=== PATIENT | female | born 1930 | race Asian ===

== ENCOUNTER 2019-11-06 13:57 | Inpatient (IN) | payer OTHER ==
[~2019-11-06] VITALS: Ht 147.3 cm; Wt 60.8 kg
--- NOTE | 2019-11-06 14:18 | NUR ---
PT WAS TAKEN TO XR
[2019-11-06 14:30] VITALS: BP 155/76
--- NOTE | 2019-11-06 14:30 | NUR ---
PT TAKEN TO BED VIA WHEELCHAIR WITH DAUGHTER
--- NOTE | 2019-11-06 14:30 | NUR ---
89/F BIB DAUGHTER FROM HOME, C/O POOR APPETITE X2 WEEKS. REPORTS DIFFUSE ABD PAIN. DENIES FEVER. DENIES COUGH. PT AWAKE AND ALERT, WITH FACIAL GRIMACING, MOANING, PT ABLE TO AMBULATE WITH ASSIST BUT WHEELCHAIR-ASSISTED, RR EVEN AND UNLABORED, LUNG SOUNDS CLEAR BL. S1S2 PRESENT, NSR ON MONITOR. BS ACTIVE X4, ABD SOFT FLAT TENDER DIFFUSELY. HX CHF, HYPONATREMIA, HTN, GERD, GASTRIC ULCER RX LASIX, OMEPRAZOLE, MISOPROSTOL, SODIUM CHLORIDE 1GM, VALSARTAN, ATIVAN
[2019-11-06 15:13] LABS: BASOPHILS % (AUTO) 0.8 % (0.0-2.0); EOSINOPHILS # (AUTO) 0.1 K/uL (0-0.4); EOSINOPHILS % (AUTO) 2.8 % (0.0-4.0); HEMATOCRIT 40.2 % (36-48); HEMOGLOBIN 13.7 g/dL (12.0-16.0); LYMPHOCYTES # (AUTO) 1.2 K/uL (2.5-16.5); LYMPHOCYTES % (AUTO) 25.7 % (20.5-51.1); MEAN CORPUSCULAR HEMOGLOBIN 34 pg (27-31); MEAN CORPUSCULAR HGB CONC 34 g/dL (33-37); MEAN CORPUSCULAR VOLUME 100.7 fL (80-94); MONOCYTES # (AUTO) 0.6 K/uL (0.8-1.0); MONOCYTES % (AUTO) 12.6 % (1.7-9.3); NEUTROPHILS # (AUTO) 2.8 K/uL (1.8-7.7); NEUTROPHILS % (AUTO) 58.1 % (42.2-75.2); PLATELET COUNT (AUTO) 244 K/uL (140-450); RED BLOOD CELL COUNT(AUTO) 3.99 MIL/uL (4.20-5.40); RED CELL DISTRIBUTION WIDTH 15.2 % (11.6-13.7); WHITE BLOOD COUNT (AUTO) 4.8 K/uL (4.8-10.8)
[2019-11-06 15:36] LABS: ALBUMIN 3.7 g/dL (3.4-5.0); ANION GAP 8.9 (8-16); ASPARTATE AMINOTRANSFERASE 42 U/L (15-37); CARBON DIOXIDE 26.8 mmol/L (21-32); CHLORIDE 98 mmol/L (98-107); CREATININE 0.7 mg/dL (0.6-1.3); GLUCOSE 153 mg/dL (74-106); POTASSIUM 3.7 mmol/L (3.5-5.1); SODIUM SERUM 130 mmol/L (136-145); TOTAL BILIRUBIN 0.7 mg/dL (0.0-1.0); UREA NITROGEN, BLOOD 4 mg/dL (7-18)
[2019-11-06] MEDS ORDERED: NACL 0.9% 1,000 ML IV ONE (15:45)
[2019-11-06] MEDS ORDERED: MORPHINE SULFATE 4 MG/ML SYR IVP ONE (15:45)
--- NOTE | 2019-11-06 16:03 | NUR ---
STRAIGHT CATH PERFORMED AT BEDSIDE TO OBTAIN URINE
--- NOTE | 2019-11-06 16:09 | NUR ---
CT WITH CONTRAST CONSENT SIGNED AT BEDSIDE
--- NOTE | 2019-11-06 16:15 | NUR ---
PT TAKEN TO CT VIA FABIOLA
[2019-11-06 16:24] LABS: APPEARANCE,URINE CLEAR (CLEAR); BILIRUBIN,URINE NEGATIVE (NEGATIVE); BLOOD, URINE NEGATIVE (NEGATIVE); COLOR,URINE YELLOW (YELLOW); LEUKOCYTE ESTERASE ,URINE NEGATIVE (NEGATIVE); NITRITE, URINE NEGATIVE (NEGATIVE); UGLUCOSE NEGATIVE (NEGATIVE)
--- NOTE | 2019-11-06 16:50 | NUR ---
CHANGED PTS DIAPER. VSS. ALL NEEDS MET AT THIS TIME
[2019-11-06] MEDS ORDERED: DOCUSATE SODIUM 100 MG GELCAP PO PRN (17:25)
[2019-11-06] MEDS ORDERED: ONDANSETRON 4 MG/2 ML VIAL IM/IVP PRN (17:25)
[2019-11-06] MEDS ORDERED: OMEP40EC14 PO (17:57)
[2019-11-06] MEDS ORDERED: CYT100 PO (17:57)
[2019-11-06] MEDS ORDERED: VALS160T2 PO (17:57)
[2019-11-06] MEDS ORDERED: FURO-572 PO (17:57)
[2019-11-06] MEDS ORDERED: ATI.5 PO (17:57)
[2019-11-06] MEDS ORDERED: SODI100076 PO (17:57)
[2019-11-06] MEDS ORDERED: OMEP20TC12 PO (18:05)
--- NOTE | 2019-11-06 18:30 | NUR ---
MRSA SWAB DONE TO PT AND SAMPLE WAS SENT TO LAB.
[2019-11-06 18:35] VITALS: BP 155/71
--- NOTE | 2019-11-06 18:35 | NUR ---
RECEIVED PT FROM ER NURSE, RADHA, PT IS AWAKE AND ALERT AND AMBULATED WITH ASSIST TO THE BED, IV LINE ON THE RT AC G. 20 ON SALINE LOCK, PT IS SERBIAN AND ACCOMPANIED BY DAUGHTER, C/O SOB AND WAS PLACED ON O2 O2 Glory CASTRO WAS INFORMED, NO SIGN OF DISTRESS NOTED AND WILL CONTINUE TO BE MONITORED.
--- NOTE | 2019-11-06 18:39 | NUR ---
Patient will be admitted to care of HOLM. Admited to MED SURG TELE. Will go to room 128A. Belongings list completed. Report to BRIANNE DAVIS.
--- NOTE | 2019-11-06 18:40 | NUR ---
ALL IV FLUIDS DISCONTINUED AT TIME OF TRANSFER.
[2019-11-06 18:50] LABS: BARBITURATE, URINE NEG. ng/ml (NEG <=200); BENZODIAZEPINE, URINE NEG. ng/mL (NEG <=200); CANNABINOID, URINE NEG. ng/mL (NEG <=50); COCAINE, URINE NEG. ng/mL (NEG <=300); OPIATE, URINE NEG. ng/mL (NEG <=2000); PHENCYCLIDINE SCREEN,URINE NEG. ng/mL (NEG <=25)
--- NOTE | 2019-11-06 18:50 | NUR ---
ULTRASOUND OF THE BILATERAL CAROTID ARTERY WAS BEING DONE TO PT NOW.
[2019-11-06 19:02] LABS: AMYLASE 39 U/L (25-115); MAGNESIUM 1.6 mg/dL (1.8-2.4); PHOSPHORUS 3.3 mg/dL (2.5-4.9); THYROID STIMULATING HORMONE 2.15 uIU/mL (0.34-3.74)
[2019-11-06 19:03] LABS: PROTHROMBIN TIME 10.1 secs (10.8-13.4)
--- NOTE | 2019-11-06 19:25 | NUR ---
ENDORSED PT TO SPORTS MANAGER NURSEMEL FOR CONTINUITY OF CARE.
--- NOTE | 2019-11-06 19:25 | NUR ---
RECIEVED PT . AAOX4 NID , IV SITE INTACT AND PATENT , NPO NID - O2 SAT WNL, DAUGHTER AT BEDSIDE . DENIES PAIN AT THIS TIME . SOFT ABD. , INCONTINENT. PLAN OF CARE DISCUSSED AND VERBALIZE UNDERSTANDING . ON SAFETY / FALL PRECAUTION PROTOCOL - CALL LIGFHT WITHIN REACH TOO WEAK TO WALK ACCORDING TO DAUGHTER.WILL CONT. TO MONITOR
[2019-11-06 19:30] VITALS: BP 130/70
[2019-11-06] MEDS ORDERED: POTASSIUM CHLORIDE 20% 40 MEQ/15 ML UDC PO SCH (19:30)
[2019-11-06] MEDS ORDERED: MAG SULF 2000 MG/WATER PREMIX 50 ML IV SCH (19:30)
[2019-11-06] MEDS: NACL 0.9% 1,000 ML IV SCH (20:13)
--- NOTE | 2019-11-06 22:00 | NUR ---
MADE ROUNDS . NO S/SXS OF ACUTE DISTRESS NOTED AT THIS TIME.
[2019-11-06] MEDS: MISOPROSTOL 100 MCG TAB PO SCH (23:03)
[2019-11-06] MEDS: LORazepam 0.5 MG TAB PO SCH (23:03)
[2019-11-06] MEDS: MIRTAZAPINE 15 MG TAB PO SCH (23:04)
[2019-11-07] VITALS: BP 128/70
--- NOTE | 2019-11-07 | NUR ---
MADE ROUNDS O2 SAT WNL - ON SALES TEAM LEADER . NO COMPLAIN MADE AT THIS TIME . WILL CONT. TO MONITOR.
--- NOTE | 2019-11-07 02:00 | NUR ---
MADE ROUNDS . RESP . UNLABORED AND EVEN - OS SAT WNL .
[2019-11-07 04:00] VITALS: BP 130/72
--- NOTE | 2019-11-07 04:00 | NUR ---
MADE ROUNDS MOLD REPAIR TECHNICIAN COMPLAIN MADE - CALL LIGHT WITHIN REACH.
[2019-11-07] MEDS ORDERED: PANTOPRAZOLE 40 MG TABEC PO ONE ×2 (05:16→05:17)
--- NOTE | 2019-11-07 06:00 | NUR ---
MADE ROUNDS . NO S/SXS OF ACUTE DISTRESS NOTED AT THIS TIME . WILL CONT. TO MONITOR. MAINTAIN NPO .
[2019-11-07 06:05] LABS: BASOPHILS % (AUTO) 0.8 % (0.0-2.0); EOSINOPHILS # (AUTO) 0.2 K/uL (0-0.4); EOSINOPHILS % (AUTO) 5.7 % (0.0-4.0); HEMATOCRIT 39.2 % (36-48); HEMOGLOBIN 13.3 g/dL (12.0-16.0); LYMPHOCYTES # (AUTO) 1.3 K/uL (2.5-16.5); LYMPHOCYTES % (AUTO) 36.3 % (20.5-51.1); MEAN CORPUSCULAR HEMOGLOBIN 35 pg (27-31); MEAN CORPUSCULAR HGB CONC 34 g/dL (33-37); MEAN CORPUSCULAR VOLUME 101.8 fL (80-94); MONOCYTES # (AUTO) 0.4 K/uL (0.8-1.0); MONOCYTES % (AUTO) 12.5 % (1.7-9.3); NEUTROPHILS # (AUTO) 1.6 K/uL (1.8-7.7); NEUTROPHILS % (AUTO) 44.7 % (42.2-75.2); PLATELET COUNT (AUTO) 215 K/uL (140-450); RED BLOOD CELL COUNT(AUTO) 3.85 MIL/uL (4.20-5.40); RED CELL DISTRIBUTION WIDTH 14.6 % (11.6-13.7); WHITE BLOOD COUNT (AUTO) 3.6 K/uL (4.8-10.8)
[2019-11-07] MEDS: PANTOPRAZOLE 40 MG TABEC PO SCH (06:07)
[2019-11-07 07:07] LABS: ANION GAP 8.7 (8-16); CARBON DIOXIDE 30.5 mmol/L (21-32); CHLORIDE 102 mmol/L (98-107); CREATININE 0.6 mg/dL (0.6-1.3); GLUCOSE 108 mg/dL (74-106); POTASSIUM 4.2 mmol/L (3.5-5.1); SODIUM SERUM 137 mmol/L (136-145); UREA NITROGEN, BLOOD 4 mg/dL (7-18)
[2019-11-07 07:14] LABS: MAGNESIUM 2.3 mg/dL (1.8-2.4); PHOSPHORUS 3.8 mg/dL (2.5-4.9)
[2019-11-07 07:20] LABS: CHOL/HDL RATIO 3.7 (1-4.5)
--- NOTE | 2019-11-07 07:35 | NUR ---
ENDORSED TO AM SHIFT FOR CONT. OF CARE . PT IS WITH STABLE CONDITION .
--- NOTE | 2019-11-07 07:40 | NUR ---
RECEIVED PT FROM PULP MAKER NURSE, PT IS AWAKE AND LYING ON THE BED WITH SIDE RAILS UP ANC ALL LIGHT WITHIN REACH, IV LINE ON THE RT AC G. 20 WITH IVF OF NS INFUSING AT 60ML/HR, NO SIGN OF DISTRESS NOTED AND WILL MONITOR PT.
[2019-11-07 08:00] VITALS: BP 160/66
--- NOTE | 2019-11-07 08:32 | NUR ---
PATIENT HAS BEEN SCREENED AND CATEGORIZED HIGH NUTRITION RISK. PATIENT WILL BE SEEN WITHIN 1-2 DAYS OF ADMISSION. 11/07/19-11/08/[address]
[2019-11-07] MEDS ORDERED: NON-FORMULARY ITEM (Omeprazole 40 MG) PO SCH (09:00)
[2019-11-07] MEDS: FUROSEMIDE 20 MG TAB PO SCH (09:22)
[2019-11-07] MEDS: LORazepam 0.5 MG TAB PO SCH ×2 (09:22→20:28)
[2019-11-07] MEDS: SODIUM CHLORIDE 1 GM TAB PO SCH (09:23)
[2019-11-07] MEDS: MISOPROSTOL 100 MCG TAB PO SCH ×4 (09:24→20:26)
[2019-11-07] MEDS: VALSARTAN 80 MG TAB PO SCH (09:30)
[2019-11-07 12:00] VITALS: BP 155/76
--- NOTE | 2019-11-07 12:05 | NUR ---
DR. CAVANAUGH WAS INFORMED OF THE PT'S BP RESULT OF 171/69, PULSE IS 63, MD SAID THAT HE WILL JUST PLACE AN ORDER.
[2019-11-07] MEDS: NACL 0.9% 1,000 ML IV SCH (13:05)
--- NOTE | 2019-11-07 13:05 | NUR ---
PT WAS GIVEN THE SCHEDULED MEDICATION, ANEW BAG OF IVF WAS STARTED TO PT.
--- NOTE | 2019-11-07 13:12 | NUR ---
PT' BP WAS CHECKED NOW AND RESULT IS 155/76, PULSE IS 71, O2 SATURATION IS 94%, DR. CAVANAUGH WAS INFORMED OF THE V/S.
--- NOTE | 2019-11-07 13:13 | NUR ---
SWALLOW EVALUIATION IS BEING DONE TO PT NOW BY MIRLANDE.
--- NOTE | 2019-11-07 13:49 | NUR ---
*S.T. BEDSIDE SWALLOW EVAL COMPLETED* See report. Pt presents w/ adequate oropharyngeal swallow function for baseline diet textures given. NO overt s/s aspiration observed across all textures. Pt is able to self-feed w/ min assist. Recommend: 1) Advance to mechanical soft ground diet, thin liquids okay. Straws okay. 2) P.O. meds okay whole, one at a time. 3) Nsg to assist w/ tray set up and positioning pt to promote self-feeding. No further swallow tx indicated at this time as pt appears to be functionig at her reported baseline level. DC to nsg care. D/w pt and dtr at bedside. Endorsed to RYAN Peres. Time [id number]
[2019-11-07 16:00] VITALS: BP 126/60
--- NOTE | 2019-11-07 16:25 | NUR ---
11/07/19 RD INITIAL ASSESSMENT COMPLETED PLEASE REFER TO NUTRITION ASSESSMENT UNDER CARE ACTIVITY FOR ESTIMATED NUTRITIONAL NEEDS. 1. CONTINUE CARDIAC, MECH. SOFT-GROUND, THIN LIQUIDS DIET TOLERATED 2. RD RECOMMEND ENSURE BID 3. RD TO FOLLOW-UP 2-3 DAYS, HIGH RISK MAMADOU PUTNAM, RD
--- NOTE | 2019-11-07 17:03 | NUR ---
Corn Husker Note: Per patient's daughter Charley Rascon, patient lives at home with her older sister Valarie and they would like patient to be placed at [facility] (senior strategy analyst). She told me they have already visited [facility]. I faxed referral to [facility], Melita from [facility] is aware of referral and will contact our nurses' station and let nurse know if they can accept or not.
[2019-11-07] MEDS: MORPHINE SULFATE 2 MG/ML SYR IVP PRN (17:15)
--- NOTE | 2019-11-07 17:15 | NUR ---
PT WAS GIVEN PAIN MEDICATION VIA IV PUSH FOR C/O PAIN RATE OF 9/10. WILL RE-ASSESS PAIN AND MONKITOR PT.
--- NOTE | 2019-11-07 19:10 | NUR ---
ENDORSED PT TO MANAGER PATIENT NURSE, FOR CONTINUITY OF CARE, PT IS STABLE AT THIS TIME WITH DAUGHTER ON THE BEDSIDE.
--- NOTE | 2019-11-07 19:11 | NUR ---
RECEIVED REPORT FROM DAY SHIFT NURSE. PT RESTING IN BED. AAOX3. PT'S DAUGHTER AT BEDSIDE. NO C/O PAIN AT THIS TIME. ON ROOM AIR. SKIN INTACT. IV TO RIGHT AC #20G, NS AT 60 ML/HR INFUSING WELL. SAFETY PRECAUTION IN PLACE. CALL LIGHT WITHIN REACH.
[2019-11-07 20:00] VITALS: BP 154/76
[2019-11-07] MEDS: KETOROLAC 15 MG/ML VIAL IVP PRN (20:25)
[2019-11-07] MEDS: MIRTAZAPINE 15 MG TAB PO SCH (20:26)
--- NOTE | 2019-11-07 21:30 | NUR ---
PT LYING IN BED. NO C/O PAIN OR SOB. ALL NEEDS ATTENDED AT THIS TIME. CALL LIGHT WITHIN REACH.
[2019-11-08] VITALS: BP 125/53
--- NOTE | 2019-11-08 | NUR ---
PT SLEEPING BUT EASILY AROUSABLE. NO S/S OF RESP DISTRESS. NO S/S OF PAIN OR DISCOMFORT.
[2019-11-08] MEDS: NACL 0.9% 1,000 ML IV SCH ×2 (02:45→22:06)
--- NOTE | 2019-11-08 03:00 | NUR ---
PT SLEEPING. RESP EVEN AND UNLABORED. NO S/S OF PAIN OR DISCOMFORT. SAFETY PRECAUTION IN PLACE.
[2019-11-08 04:00] VITALS: BP 15/76
--- NOTE | 2019-11-08 05:30 | NUR ---
PT WAS CLEANSED AND REPOSITIONED. ALL NEEDS ATTENDED AT THIS TIME. CALL LIGHT WITHIN REACH.
[2019-11-08 06:06] LABS: FOLIC ACID 13.6 ng/mL (>3.0)
[2019-11-08] MEDS: PANTOPRAZOLE 40 MG TABEC PO SCH (06:13)
--- NOTE | 2019-11-08 07:25 | NUR ---
ENDORSED PT TO DAY SHIFT NURSE. PT IN STABLE CONDITION.
--- NOTE | 2019-11-08 07:26 | NUR ---
RECEIVED BEDSIDE SHIFT REPORT FROM SERVICE PLUMBER NURSE FOR CONTINUATION OF CARE. PATIENT SPEAKS ONLY SLOVENIAN, UNABLE TO COMMUNICATE EFFECTIVELY WITHOUT THE USE OF LANGUAGE INTERPRETATION AT THIS TIME. NS RUNNING AT 10 ML/HR. MECHANICAL SOFT DIET IN PLACE, INCONTINENT. PATIENT BED IS IN LOW POSITION, CALL LIGHT ON AND WITHIN REACH. WILL CONTINUE TO MONITOR FOR TREATMENT.
--- NOTE | 2019-11-08 07:27 | NUR ---
RECEIVED BEDSIDE SHIFT REPORT FROM AM SHIFT NURSE, ADONAY FOR CONTINUATION OF CARE. PATIENT SPEAKS ONLY ALBANIAN. PT UNDERSTANDS LITTLE POLISH. NS RUNNING AT 60 ML/HR AT R FOREARM. PATIENT BED IS IN LOW POSITION, CALL LIGHT ON AND WITHIN REACH. WILL CONTINUE TO MONITOR FOR TREATMENT Addendum: 11/09/19 at 0752 by Tiffanie Cervantes RN DELETE NOTE
[2019-11-08 08:00] VITALS: BP 151/80
[2019-11-08 08:00] LABS: BASOPHILS % (AUTO) 0.6 % (0.0-2.0); EOSINOPHILS # (AUTO) 0.2 K/uL (0-0.4); EOSINOPHILS % (AUTO) 5.9 % (0.0-4.0); HEMATOCRIT 38.9 % (36-48); HEMOGLOBIN 13.2 g/dL (12.0-16.0); LYMPHOCYTES # (AUTO) 0.8 K/uL (2.5-16.5); LYMPHOCYTES % (AUTO) 23.7 % (20.5-51.1); MEAN CORPUSCULAR HEMOGLOBIN 35 pg (27-31); MEAN CORPUSCULAR HGB CONC 34 g/dL (33-37); MEAN CORPUSCULAR VOLUME 101.3 fL (80-94); MONOCYTES # (AUTO) 0.4 K/uL (0.8-1.0); MONOCYTES % (AUTO) 12.3 % (1.7-9.3); NEUTROPHILS % (AUTO) 57.5 % (42.2-75.2); PLATELET COUNT (AUTO) 208 K/uL (140-450); RED BLOOD CELL COUNT(AUTO) 3.84 MIL/uL (4.20-5.40); RED CELL DISTRIBUTION WIDTH 14.6 % (11.6-13.7); WHITE BLOOD COUNT (AUTO) 3.5 K/uL (4.8-10.8)
[2019-11-08] MEDS: FUROSEMIDE 20 MG TAB PO SCH (08:07)
[2019-11-08] MEDS: LORazepam 0.5 MG TAB PO SCH ×2 (08:07→20:25)
[2019-11-08] MEDS: MISOPROSTOL 100 MCG TAB PO SCH ×4 (08:08→22:05)
[2019-11-08] MEDS: VALSARTAN 80 MG TAB PO SCH (08:08)
[2019-11-08] MEDS: SODIUM CHLORIDE 1 GM TAB PO SCH (08:08)
--- NOTE | 2019-11-08 09:30 | NUR ---
LAB REPORT POSITIVE FOR MRSA NARES, DR. POLO NOTIFIED FOR MRSA NARES PROTOCOL INITIATION. PATIENT IS RESTING IN BED, MEDICATIONS ADMINISTERED. CALL LIGHT ON AND WITHIN REACH. PATIENT CONTINUES ON MECHANICAL SOFT DIET. WILL CONTINUE TO MONITOR.
[2019-11-08 11:57] LABS: ANION GAP 11.8 (8-16); CARBON DIOXIDE 29.1 mmol/L (21-32); CHLORIDE 101 mmol/L (98-107); CREATININE 0.6 mg/dL (0.6-1.3); GLUCOSE 106 mg/dL (74-106); POTASSIUM 3.9 mmol/L (3.5-5.1); SODIUM SERUM 138 mmol/L (136-145); UREA NITROGEN, BLOOD 6 mg/dL (7-18)
[2019-11-08 12:00] VITALS: BP 121/76
--- NOTE | 2019-11-08 12:00 | NUR ---
MEDICATIONS ADMINISTERED AND TOLERATED WELL, PATIENT VERBALIZES 'ATIVAN' WHEN IN DISTRESS, CALLED RESIDENT FOR AN EXTRA ORDER, 1X DOSE OF ATIVAN 0.5 MG IVP ORDERED. PATIENT IS POSITIVE FOR MRSA NARES PER LAB. MRSA NARES PROTOCOL INITIATED. BACTROBAN ADMINISTERED. CHG BATH GIVEN. PATIENT IS RESTING IN BED, BED IN LOW POSITION, CALL LIGHT ON AND WITHIN REACH. WILL CONTINUE TO MONITOR.
[2019-11-08 12:04] LABS: MAGNESIUM 1.7 mg/dL (1.8-2.4)
[2019-11-08] MEDS ORDERED: LORazepam 2 MG/ML VIAL IVP SCH (12:45)
[2019-11-08] MEDS ORDERED: MAGNESIUM OXIDE 400 MG TAB PO SCH (12:55)
[2019-11-08] MEDS: CHLORHEXADINE GLUC 2% CLOTH TP SCH (13:06)
[2019-11-08] MEDS: MUPIROCIN CA NASAL 2% 1GM TUBE NS SCH (13:19)
--- NOTE | 2019-11-08 14:33 | NUR ---
DAUGHTER/PRIMARY SUPERVISOR PHOSPHORIC ACID CALLED AND WAS INFORMED OF MRSA STATUS. UPDATE GIVEN TO DAUGHTER REGARDING PATIENT CARE. PATIENT IS RESTING IN BED, PER DAUGHTER THE PATIENT HAS A MILD ULCER AND IS SENSITIVE TO FOOD, AND WHENEVER SHE EATS FOOD HER STOMACH BECOMES UPSET AND IS COUPLED WITH ANXIETY. DAUGHTER WAS EDUCATED ON THE DOSAGES AND USE OF ATIVAN. VERBALIZED UNDERSTANDING. BED IN LOW POSITION, CALL LIGHT ON AND WITHIN REACH. WILL CONTINUE TO MONITOR.
[2019-11-08 16:00] VITALS: BP 132/59
--- NOTE | 2019-11-08 17:00 | NUR ---
MEDICATION ADMINISTERED FOR BLOOD PRESSURE REGULATION. PATIENT SLEEPING IN BED, EYES CLOSED, OBSERVED CHEST RISE AND FALL. BED IN LOW POSITION CALL LIGHT ON AND WITHIN REACH, NS RUNNING AT 60 ML/HR. WILL CONTINUE TO MONITOR.
[2019-11-08] MEDS ORDERED: MUPI2CRE22 NS (17:32)
[2019-11-08] MEDS ORDERED: MIRT15TA4 PO (17:32)
[2019-11-08] MEDS ORDERED: CHLO118S2 TP (17:32)
[2019-11-08] MEDS ORDERED: DOCU-299 PO (17:33)
--- NOTE | 2019-11-08 19:15 | NUR ---
BEDSIDE SHIFT REPORT GIVEN TO SUPERVISOR FILTRATION NURSE FOR CONTINUATION OF CARE.
--- NOTE | 2019-11-08 19:16 | NUR ---
RECEIVED BEDSIDE SHIFT REPORT FROM AM SHIFT NURSEADONAY FOR CONTINUATION OF CARE. PATIENT SPEAKS ONLY TAMAZIGHT. PT UNDERSTANDS LITTLE TELUGU. NS RUNNING AT 60 ML/HR AT R FOREARM. PATIENT BED IS IN LOW POSITION, CALL LIGHT ON AND WITHIN REACH. WILL CONTINUE TO MONITOR FOR TREATMENT
[2019-11-08 20:00] VITALS: BP 126/69
[2019-11-08] MEDS: MORPHINE SULFATE 2 MG/ML SYR IVP PRN (20:24)
--- NOTE | 2019-11-08 20:24 | NUR ---
PT SAYING SHE HAS PAIN IN HER ABDOMEN, PT FACIAL GRIMACING AND CRYING. ADMINISTERED MORPHINE . WILL REASSESS
[2019-11-08] MEDS: MIRTAZAPINE 15 MG TAB PO SCH (20:26)
--- NOTE | 2019-11-08 21:20 | NUR ---
INFORMED DAUGHTER THAT PT IS NOT EATING WELL; DR. FLORES, GIVEN ENSURE TOTAL OF 600 ML PT TOLERATED WELL. CONSUMED IT
[2019-11-09] VITALS: BP 130/69
--- NOTE | 2019-11-09 00:45 | NUR ---
CHECKED ON PATIENT SLEEPING, NO COMPLAINTS AT THIS TIME.
--- NOTE | 2019-11-09 02:55 | NUR ---
PT STILL SLEEPING, BUT CLEANED AND TURNED PT TO SIDE, WILL CONTINUE TO MONITOR
[2019-11-09] MEDS: NACL 0.9% 1,000 ML IV SCH (03:53)
[2019-11-09 04:00] VITALS: BP 150/73
--- NOTE | 2019-11-09 04:55 | NUR ---
PT COMFORTABLE, CLEANED AGAIN, HAD URINE, NO COMPLAINTS. PT COMFORTABLE. WILL CONTINUE TO GIVE JUICE AND AND SNACKS
[2019-11-09] MEDS: PANTOPRAZOLE 40 MG TABEC PO SCH (06:46)
--- NOTE | 2019-11-09 07:09 | NUR ---
PT STILL SLEEPING BUT EASILY AWAKNEDD, PT IN STABLE CONDITION. NO COMPLAINTS AT THIS TIME. ENDORSED TO NEXT SHIFT.
--- NOTE | 2019-11-09 07:10 | NUR ---
REPORT RECEIVED FROM AIRCRAFT ARMORER NURSE FOR CONTINUATION OF CARE. PATIENT IS HAVING A BLOOD DRAW FROM LAB AT THIS TIME. PATIENT IS AAOX3. BED IS IN LOW POSITION, CALL LIGHT ON AND WITHIN REACH. PATIENT DENIES PAIN AT THIS TIME. PER REPORT PATIENT DID NOT HAVE A BM THROUGH OUT THE AIRCRAFT ARMORER, BUT VOIDED X3. IVF NS RUNNING AT 60 ML/HR. WILL CONTINUE TO MONITOR.
[2019-11-09 08:00] VITALS: BP 149/71
[2019-11-09 08:19] LABS: BASOPHILS % (AUTO) 0.5 % (0.0-2.0); EOSINOPHILS # (AUTO) 0.2 K/uL (0-0.4); EOSINOPHILS % (AUTO) 4.7 % (0.0-4.0); HEMATOCRIT 39.6 % (36-48); HEMOGLOBIN 13.3 g/dL (12.0-16.0); LYMPHOCYTES % (AUTO) 23.5 % (20.5-51.1); MEAN CORPUSCULAR HEMOGLOBIN 34 pg (27-31); MEAN CORPUSCULAR HGB CONC 34 g/dL (33-37); MEAN CORPUSCULAR VOLUME 102.1 fL (80-94); MONOCYTES # (AUTO) 0.5 K/uL (0.8-1.0); MONOCYTES % (AUTO) 10.8 % (1.7-9.3); NEUTROPHILS # (AUTO) 2.7 K/uL (1.8-7.7); NEUTROPHILS % (AUTO) 60.5 % (42.2-75.2); PLATELET COUNT (AUTO) 204 K/uL (140-450); RED BLOOD CELL COUNT(AUTO) 3.88 MIL/uL (4.20-5.40); RED CELL DISTRIBUTION WIDTH 14.7 % (11.6-13.7); WHITE BLOOD COUNT (AUTO) 4.4 K/uL (4.8-10.8)
[2019-11-09 08:42] LABS: ANION GAP 13.1 (8-16); CHLORIDE 101 mmol/L (98-107); CREATININE 0.7 mg/dL (0.6-1.3); GLUCOSE 173 mg/dL (74-106); POTASSIUM 3.1 mmol/L (3.5-5.1); SODIUM SERUM 138 mmol/L (136-145); UREA NITROGEN, BLOOD 8 mg/dL (7-18)
[2019-11-09] MEDS: FUROSEMIDE 20 MG TAB PO SCH (09:18)
[2019-11-09] MEDS: VALSARTAN 80 MG TAB PO SCH (09:19)
[2019-11-09] MEDS: SODIUM CHLORIDE 1 GM TAB PO SCH (09:19)
[2019-11-09] MEDS: LORazepam 0.5 MG TAB PO SCH ×2 (09:19→20:11)
[2019-11-09] MEDS: MISOPROSTOL 100 MCG TAB PO SCH ×4 (09:19→21:06)
[2019-11-09 09:27] LABS: MAGNESIUM 1.6 mg/dL (1.8-2.4); PHOSPHORUS 3.6 mg/dL (2.5-4.9)
--- NOTE | 2019-11-09 10:00 | NUR ---
PATIENT IS RESTING IN BED, VITAL SIGNS ARE STABLE, PATIENT FINISHED 1 FULL ENSURE SUPPLEMENT. DISCHARGE ORDER PER MD. MEDICATIONS TOLERATED. BED IS IN LOW POSITION, CALL LIGHT ON AND WITHIN REACH. WILL CONTINUE TO MONITOR.
--- NOTE | 2019-11-09 10:15 | NUR ---
Discharge Planning: DANIELA faxed clinical packet to [facility] [phone]. DANIELA contacted Esperanza from [facility] [phone] to confirm packet was received. DANIELA attempted to arrange for patient to return to [facility], but Esperanza stated that there were are no beds available at this time. Esperanza stated that Jg would contact Cement Finishing Supervisor 11/10/2019. DANIELA informed Charge Nurse Adriano. DANIELA/CM will follow as needed.
[2019-11-09 12:00] VITALS: BP 148/62
--- NOTE | 2019-11-09 12:30 | NUR ---
PATIENT IS RESTING IN BED, CALL LIGHT ON AND WITHIN REACH, PATIENT DENIES PAIN AT THIS TIME, MAG 1.6 (LOW) AND POTASSIUM 3.1 (LOW) REPORTED TO DR. POLO. PATIENT IS STABLE, AAOX4. VITAL SIGNS NORMAL. WILL CONTINUE TO MONITOR.
[2019-11-09] MEDS: MUPIROCIN CA NASAL 2% 1GM TUBE NS SCH (13:42)
[2019-11-09] MEDS: CHLORHEXADINE GLUC 2% CLOTH TP SCH (13:42)
--- NOTE | 2019-11-09 15:00 | NUR ---
PATIENT IS RESTING IN BED, PATIENT HAD 1 BOWEL MOVEMENT, LINENS CHANGED, BOWEL IS MUSHY AND WATERY. CALL LIGHT ON AND WITHIN REACH. PATIENT DENIES PAIN AT THIS TIME. WILL CONTINUE TO MONITOR.
[2019-11-09 16:00] VITALS: BP 137/64
[2019-11-09] MEDS ORDERED: POTASSIUM CHLORIDE 10 MEQ TABER PO SCH (16:50)
[2019-11-09] MEDS ORDERED: POTASSIUM CHLORIDE 40 MEQ, LIDOCAINE MPF 1% 25 MG in NACL 0.9% 250 ML IV SCH (16:50)
--- NOTE | 2019-11-09 17:30 | NUR ---
POTASSIUM CHLORIDE INJECTION 40 MEQ IV ORDERED PER MD ORDER. PATIENT IS SLEEPING, SHE HAD 1 LARGE BOWEL MOVEMENT. PENDING PLACEMENT POST-DISCHARGE. SW WORKING ON PLACEMENT. BED IN LOW POSITION, CALL LIGHT ON AND WITHIN REACH. WILL CONTINUE TO MONITOR.
[2019-11-09] MEDS ORDERED: KCL 20 MEQ/WATER INJ PREMIX 200 ML IV ONE (18:07)
--- NOTE | 2019-11-09 19:23 | NUR ---
RECEIVED BEDSIDE SHIFT REPORT FROM AM SHIFT NURSEADONAY FOR CONTINUATION OF CARE. PATIENT SPEAKS ONLY ARMENIAN. PT UNDERSTANDS LITTLE TAMAZIGHT. NS RUNNING AT 60 ML/HR AT R FOREARM W/ POTASSIUM 20 MEQ'S IN ANOTHER LINE (MIXED). PATIENT BED IS IN LOW POSITION, CALL LIGHT ON AND WITHIN REACH. WILL CONTINUE TO MONITOR FOR TREATMENT
--- NOTE | 2019-11-09 19:24 | NUR ---
PER ENDORSEMENT OF ADONAY DAVIS; JUST INFUSE THE 20 MEQ'S AND NOT THE 40 MEQ'S. ADONAY TALKED TO AT THIS TIME, INFUSING THE 20 MEQ'S ON THE R AC G 20.
--- NOTE | 2019-11-09 19:25 | NUR ---
PER DR. HUYNH 20 MEQ'S OF POTASSIUM CHLORIDE INJECTION IS FINE VERSUS ORIGINAL ORDER FROM DR. POLO. REPORT GIVEN TO WEB MARKETING INTERN NURSE FOR CONTINUATION OF CARE.
[2019-11-09 20:00] VITALS: BP 138/63
[2019-11-09] MEDS: MIRTAZAPINE 15 MG TAB PO SCH (20:12)
[2019-11-09] MEDS: MORPHINE SULFATE 2 MG/ML SYR IVP PRN (20:12)
--- NOTE | 2019-11-09 21:00 | NUR ---
PT;S IS COMPLAINING OF PAIN IN HER R AC; CHANGED THE SITE TO THE LEFT AC G 22,TOLERATING WELL.
--- NOTE | 2019-11-09 22:28 | NUR ---
INFORMED DR. HUYNH THAT PT IS STILL GETTING THE K 20 MEQ'S. MG LEVEL IS 1. 6. DR. FLORES
[2019-11-10] VITALS: BP 132/63
--- NOTE | 2019-11-10 02:16 | NUR ---
PT MAGNESIUM, CHECKED ON SITE, R AC G 22, 2 GRAMS STARTED, PT TOLERATING WELL
[2019-11-10] MEDS ORDERED: MAG SULF 2000 MG/WATER PREMIX 50 ML IV SCH (03:00)
[2019-11-10 04:00] VITALS: BP 136/51
[2019-11-10] MEDS: PANTOPRAZOLE 40 MG TABEC PO SCH (05:51)
--- NOTE | 2019-11-10 06:43 | NUR ---
PT SLEEPING EASILY AROUSABLE. NO COMPLAINTS AT THIS TIME. PT STABLE CONDITION AT THIS TIME. WILL ENDORSE TO NEXT SHIFT.
[2019-11-10 06:53] LABS: BASOPHILS % (AUTO) 0.5 % (0.0-2.0); EOSINOPHILS # (AUTO) 0.2 K/uL (0-0.4); EOSINOPHILS % (AUTO) 3.6 % (0.0-4.0); HEMATOCRIT 39.5 % (36-48); HEMOGLOBIN 13.6 g/dL (12.0-16.0); LYMPHOCYTES # (AUTO) 1.6 K/uL (2.5-16.5); LYMPHOCYTES % (AUTO) 29.6 % (20.5-51.1); MEAN CORPUSCULAR HEMOGLOBIN 35 pg (27-31); MEAN CORPUSCULAR HGB CONC 34 g/dL (33-37); MEAN CORPUSCULAR VOLUME 101.4 fL (80-94); MONOCYTES # (AUTO) 0.6 K/uL (0.8-1.0); MONOCYTES % (AUTO) 11.2 % (1.7-9.3); NEUTROPHILS # (AUTO) 2.9 K/uL (1.8-7.7); NEUTROPHILS % (AUTO) 55.1 % (42.2-75.2); PLATELET COUNT (AUTO) 214 K/uL (140-450); RED CELL DISTRIBUTION WIDTH 14.6 % (11.6-13.7); WHITE BLOOD COUNT (AUTO) 5.2 K/uL (4.8-10.8)
--- NOTE | 2019-11-10 07:10 | NUR ---
RECEIVED PT FROM TRANSPORT TRUCK DRIVER NURSEDIEGO, PT IS AWAKE AND LYING ON THE BED WITH SIDE RAILS UP AND CALL LIGHT WITHIN REACH, PT IS ON CONTACT ISOLATION FOR POSITIVE MRSA OF NARES, PROTOCOL INITIATED, PERIPHERAL LINE ON THE RT AC G. 18 WITH NS INFUSING AT 60ML/HR, INTACT, INDONESIAN SPEAKING, ON ROOM AIR, DENIES PAIN, NO SIGN OF DISTRESS NOTED AND WILL MONITOR PT.
[2019-11-10 07:14] LABS: ANION GAP 11.9 (8-16); CARBON DIOXIDE 28.9 mmol/L (21-32); CHLORIDE 101 mmol/L (98-107); CREATININE 0.6 mg/dL (0.6-1.3); GLUCOSE 142 mg/dL (74-106); POTASSIUM 3.8 mmol/L (3.5-5.1); SODIUM SERUM 138 mmol/L (136-145); UREA NITROGEN, BLOOD 8 mg/dL (7-18)
[2019-11-10 07:25] LABS: MAGNESIUM 2.1 mg/dL (1.8-2.4); PHOSPHORUS 3.1 mg/dL (2.5-4.9)
[2019-11-10 08:00] VITALS: BP 131/70
[2019-11-10] MEDS: SODIUM CHLORIDE 1 GM TAB PO SCH (08:58)
[2019-11-10] MEDS: MISOPROSTOL 100 MCG TAB PO SCH ×3 (08:58→17:05)
[2019-11-10] MEDS: FUROSEMIDE 20 MG TAB PO SCH (08:59)
[2019-11-10] MEDS: LORazepam 0.5 MG TAB PO SCH (08:59)
--- NOTE | 2019-11-10 08:59 | NUR ---
PT WAS GIVEN THE SCHEDULED AM MEDICATIONS NOW. TOLERATED AND WILL MONITOR PT.
[2019-11-10] MEDS: VALSARTAN 80 MG TAB PO SCH (09:00)
[2019-11-10] MEDS: NACL 0.9% 1,000 ML IV SCH (09:25)
[2019-11-10] MEDS: KETOROLAC 15 MG/ML VIAL IVP PRN (09:51)
--- NOTE | 2019-11-10 09:51 | NUR ---
PT WAS GIVEN A PAIN MEDICATION VIA IV PUSH FOR C/O PAIN RATE OF 6/10, WILL RE-ASSESS PAIN AND MONITOR PT.
[2019-11-10 12:00] VITALS: BP 126/72
--- NOTE | 2019-11-10 12:26 | NUR ---
DISCHARGE PLANNING: RECEIVED AN ORDER TO DC BACK TO [facility] FOR PT. CLINICALS SENT TO [facility]. CONTACTED PATIENT'S DAUGHTER JEANIE BEE AT [phone]. SHE STATED SHE IS ON HER WAY TO THE HOSPITAL. Addendum: 11/10/19 at 1234 by Swati Valenzuela CM MET WITH PATIENT'S DAUGHTER JEANIE AT THE BEDSIDE AND IS IN AGREEMENT. Addendum: 11/10/19 at 1236 by Swati Valenzuela CM PER FRANCES OF [facility], PATIENT CAN GO TO ROOM 33B UNDER DR. POLO. Addendum: 11/10/19 at 1419 by Swati Valenzuela CM CONTACTED [facility] AT [phone], ABLE TO SPEAK TO MIRA REGARDING TRANSPORT AUTH. SHE STATED SHE HAVE TO TRANSFER ME TO THE CORRECT DEPT. ABLE TO SPEAK TO [facility], SHE STATED THEY DO NOT HANDLE TRANSPORT AUTH FOR IN PATIENT AND HAVE TO TRANSFER ME TO THE RIGHT DEPT. SHE ALSO STATED THAT IN PATIENT STONE LAYOUT MARKER CAN HELP ME WITH THIS AND GOT TRANSFERRED AGAIN. SPOKE TO MIRLANDE, SHE STATED SHE HAVE TO TRANSFER ME AGAIN TO THE RIGHT DEPT AND THEN THE CALL DROPPED. CONTACTED [facility] AGAIN, ABLE TO SPEAK TO [facility] CASE MANAGEMENT DEPT. SHE STATED PATIENT DID NOT EXHAUST ALL HER MEDICARE DAYS, SO AUTH WILL COME FROM OUT PATIENT PRIOR AUTH DEPT AND WAS TRANSFERRED. ABLE TO SPEAK TO ARIAN, INFORMED HER OF THE SITUATION. SHE STATED TO FILL OUT THE FORM FROM THEIR WEBSITE AND FAX IT TO THE NUMBER PROVIDED ON THE FORM. Addendum: 11/10/19 at 1430 by Swati Valenzuela CM TRANSPORTATION FORM FAXED TO [facility] AT [phone]. WILL FOLLOW UP. Addendum: 11/10/19 at 1508 by Swati Valenzuela CM CONTACTED [facility] TO FOLLOW UP ON TRANSPORT AUTH, ABLE TO SPEAK TO TRACIE, SHE STATED TO CALL THEM BACK IN AN HOUR BECAUSE THEY DO NOT HAVE THE FORM YET. CM WILL FOLLOW UP. Addendum: 11/10/19 at 1629 by Swati Valenzuela CM PER [facility], TRANSPORT WILL BE PROCESSED FOR FEW DAYS. I INFORMED HER THAT THE DC WILL BE TODAY. SHE STATED SHE CANNOT DO ANYTHING ABOUT IT, THERE NURSE HAVE TO REVIEW IT. CONTACTED PATIENT'S DAUGHTER JEANIE, INFORMED HER REGARDING TRANSPORT. SHE STATED THEY ARE ABLE TO DRIVE THE PATIENT BACK TO [facility]. PRIMARY RN AND [facility] MADE AWARE.
[2019-11-10] MEDS: MUPIROCIN CA NASAL 2% 1GM TUBE NS SCH (12:47)
[2019-11-10] MEDS: MORPHINE SULFATE 2 MG/ML SYR IVP PRN (12:48)
--- NOTE | 2019-11-10 12:48 | NUR ---
PT WAS GIVEN THE BACTROBAN OINTMENT AND PAIN MEDICATION VIA IV PUSH FOR C/O PAIN RATE OF 9/10, BP IS 134/71, PULSE IS 94, O2 SATURATION IS 94%
[2019-11-10] MEDS: CHLORHEXADINE GLUC 2% CLOTH TP SCH (13:59)
[2019-11-10 16:00] VITALS: BP 123/62
--- NOTE | 2019-11-10 16:52 | NUR ---
CALLED [facility] AT [phone], AND GAVE REPORT TO RYAN ABARCA AND TOLD RN THAT PT WILL BE PLACED IN RM 33-B, UNDER THE SERVICE OF DR. POLO, AND WILL HAVE PHYSICAL THERAPY AND RYAN ABARCA VERBALIZED UNDERSTANDING.
--- NOTE | 2019-11-10 17:35 | NUR ---
DISCHARGED PT TO [facility] AND WILL BE TRANSPORTED AND ACCOMPANIED BY THE DAUGHTERS, DISCHARGED INSTRUCTIONS AND DISCHARGED DOCUMENTS WERE GIVEN TO PT'S FAMILY TO FORWARD TO [facility].
== END 2019-11-10 17:35 | DRG 640 ==
LOC: MED 13:57 → MMU 17:29
PROVIDERS: ADMIT General Practice; ATTEND General Practice
DX: E87.1 Hypo-osmolality and hyponatremia (principal); G93.41 Metabolic encephalopathy; R62.7 Adult failure to thrive; K21.9 Gastro-esophageal reflux disease without esophagitis; Z96.641 Presence of right artificial hip joint; R26.81 Unsteadiness on feet; D75.89 Other specified diseases of blood and blood-forming organs; I11.9 Hypertensive heart disease without heart failure; K29.70 Gastritis, unspecified, without bleeding; F41.1 Generalized anxiety disorder; N28.1 Cyst of kidney, acquired; K57.90 Diverticulosis of intestine, part unspecified, without perforation or abscess without bleeding; E04.1 Nontoxic single thyroid nodule; E87.6 Hypokalemia; E83.42 Hypomagnesemia; M47.817 Spondylosis without myelopathy or radiculopathy, lumbosacral region; K76.0 Fatty (change of) liver, not elsewhere classified; I08.3 Combined rheumatic disorders of mitral, aortic and tricuspid valves; I27.21 Secondary pulmonary arterial hypertension; Z68.28 Body mass index [BMI] 28.0-28.9, adult; Z88.8 Allergy status to other drugs, medicaments and biological substances; Z87.81 Personal history of (healed) traumatic fracture; Z22.322 Carrier or suspected carrier of Methicillin resistant Staphylococcus aureus
CPT/HCPCS: 36415; 70450; 71045; 71260; 72110; 76536; 76700; 80048; 80053; 80305; 81003; 82140; 82150; 82607; 82746; 83036; 83690; 83735; 83880; 84100; 84134; 84443; 84484; 85025; 85610; 85730; 87040; 87081; 87086; 87804; 92610; 93005; 93880; 96361; 96374; 97112; 97116; 97161-GP; 97530; 99285; G0482; J1885; J2060; J2270; J3475; J3480; J7030; Q0092; Q9967

== ENCOUNTER 2020-02-20 17:46 | Inpatient (IN) | payer OTHER, SELFPAY ==
[~2020-02-20] VITALS: Ht 160 cm; Wt 58.1 kg
[~2020-02-20 17:46] MED LIST: ATI.5 PO; CHLO118S2 TP; CYT100 PO; DOCU-299 PO; FURO-572 PO; MIRT15TA4 PO; MUPI2CRE22 NS; OMEP20TC12 PO; OMEP40EC14 PO; SODI100076 PO; VALS160T2 PO
--- NOTE | 2020-02-20 17:46 | NUR ---
BIBA TAKEN TO BED 9
[2020-02-20 17:47] VITALS: BP 156/64
[2020-02-20] MEDS ORDERED: ASPIRIN 325 MG TAB PO ONE (17:50)
--- NOTE | 2020-02-20 17:50 | NUR ---
PT HOLDING CHEST AT STERNAL REGION. NO EDEMA PRESENT. PT NON-DIAPHORETIC
--- NOTE | 2020-02-20 17:50 | NUR ---
PMH- GASTRITIS, HTN, ANXIETY, THYROID NODULE, FATTY LIVER, UNSTEADY GAIT, GENERALIZED WEAKNESS, GERD, ELECTROLYTE IMBALANCE, METABOLIC ENCEPHALOPATHY, DYSPHAGIA, OVERACTIVE BLADDER, HYPOKALEMIA, OSTEOPOROSIS, DEPRESSIVE DISORDER, ANEMIA
--- NOTE | 2020-02-20 17:50 | NUR ---
PT IS A DNR
--- NOTE | 2020-02-20 17:50 | NUR ---
JOEL FROM [facility] C/O CP/SOB X 1 HOUR PRIOR TO ARRIVAL. NO MEDICATIONS GIVEN IN ROUTE. ROB SIGN PRESENT. URDU SPEAKING. PT ALERT AND ORIENTED X4. VS STABLE. 8/10 PAIN
--- NOTE | 2020-02-20 17:51 | NUR ---
PT HAS CLEAR LUNGS DOMINGUEZ. ROOM AIR. RR EVEN AND UNLABORED.
--- NOTE | 2020-02-20 17:52 | NUR ---
ASPIRIN PO ADMINISTERED
[2020-02-20] MEDS ORDERED: DOCU-299 PO (18:07)
[2020-02-20] MEDS ORDERED: CYAN100T65 PO (18:07)
[2020-02-20] MEDS ORDERED: FOLI2000 PO (18:07)
[2020-02-20] MEDS ORDERED: MULT-153 PO (18:07)
[2020-02-20] MEDS ORDERED: SUCR1SUS7 PO (18:07)
[2020-02-20] MEDS ORDERED: FURO-572 PO (18:07)
--- NOTE | 2020-02-20 18:07 | NUR ---
DR HARRIS SPEAKING WITH PT IN [place] USING AGENT PRODUCER PHONE
--- NOTE | 2020-02-20 18:16 | NUR ---
PT REFUSING BLOOD DRAW AT THIS TIME.
--- NOTE | 2020-02-20 18:26 | NUR ---
EKG AT BEDSIDE BY GREGORY SEVILLA
--- NOTE | 2020-02-20 18:30 | NUR ---
LAB AT BEDSIDE
[2020-02-20] MEDS ORDERED: MORPHINE SULFATE 2 MG/ML SYR IVP ONE (18:35)
[2020-02-20] MEDS ORDERED: NITROGLYCERIN 2% 1 GM PKT TP ONE (18:35)
[2020-02-20 18:50] LABS: BASOPHILS # (AUTO) 0.1 K/uL (0.00-0.22); BASOPHILS % (AUTO) 1.4 % (0.0-2.0); EOSINOPHILS # (AUTO) 0.6 K/uL (0-0.4); EOSINOPHILS % (AUTO) 11.6 % (0.0-4.0); HEMATOCRIT 37.4 % (36-48); HEMOGLOBIN 12.9 g/dL (12.0-16.0); LYMPHOCYTES # (AUTO) 1.7 K/uL (2.5-16.5); LYMPHOCYTES % (AUTO) 30.5 % (20.5-51.1); MEAN CORPUSCULAR HEMOGLOBIN 35 pg (27-31); MEAN CORPUSCULAR HGB CONC 35 g/dL (33-37); MEAN CORPUSCULAR VOLUME 101.2 fL (80-94); MONOCYTES # (AUTO) 0.6 K/uL (0.8-1.0); NEUTROPHILS # (AUTO) 2.5 K/uL (1.8-7.7); NEUTROPHILS % (AUTO) 45.5 % (42.2-75.2); PLATELET COUNT (AUTO) 192 K/uL (140-450); RED BLOOD CELL COUNT(AUTO) 3.69 MIL/uL (4.20-5.40); RED CELL DISTRIBUTION WIDTH 13.7 % (11.6-13.7); WHITE BLOOD COUNT (AUTO) 5.5 K/uL (4.8-10.8)
--- NOTE | 2020-02-20 18:51 | NUR ---
NITRO APPLIED TO PTS CHEST WALL, IV ESTABLISHED TO PTS R AC AND MORPHINE ADMINISTERED
[2020-02-20 19:02] LABS: PROTHROMBIN TIME 10.5 secs (10.8-13.4)
[2020-02-20 19:04] LABS: ALBUMIN 3.1 g/dL (3.4-5.0); ANION GAP 7.8 (8-16); ASPARTATE AMINOTRANSFERASE 42 U/L (15-37); CHLORIDE 104 mmol/L (98-107); CREATININE 0.7 mg/dL (0.6-1.3); GLUCOSE 175 mg/dL (74-106); SODIUM SERUM 139 mmol/L (136-145); TOTAL BILIRUBIN 0.8 mg/dL (0.0-1.0); UREA NITROGEN, BLOOD 4 mg/dL (7-18)
[2020-02-20 19:05] LABS: POTASSIUM 2.8 mmol/L (3.5-5.1)
--- NOTE | 2020-02-20 19:12 | NUR ---
REPORT GIVEN TO DL DAVIS, PT PENDING LAB RESULTS AND CORONOVIRUS
[2020-02-20] MEDS ORDERED: POTASSIUM CHLORIDE 10 MEQ TABER PO ONE ×2 (19:20→23:05)
[2020-02-20] MEDS ORDERED: NITROGLYCERIN 0.4 MG TAB SL PRN (19:20)
[2020-02-20] MEDS ORDERED: ONDANSETRON 4 MG/2 ML VIAL IVP PRN (19:20)
--- NOTE | 2020-02-20 19:33 | NUR ---
k dur ADMINISTERED. tolerated well.
--- NOTE | 2020-02-20 19:34 | NUR ---
covid swab collected and sent to lab
[2020-02-20 19:58] LABS: MAGNESIUM 1.5 mg/dL (1.8-2.4); PHOSPHORUS 3.3 mg/dL (2.5-4.9); THYROID STIMULATING HORMONE 3.15 uIU/mL (0.34-3.74)
--- NOTE | 2020-02-20 20:25 | NUR ---
Patient will be admitted to care of DR DIAZ. Admited to TELE. Will go to room 129. Belongings list completed. Report to TANIYA DAVIS .
[2020-02-20 20:30] VITALS: BP 161/86
--- NOTE | 2020-02-20 20:32 | NUR ---
PT TRANSFERRED BY FABIOLA, SHE IS AOX1-2, SHE IS FAROESE SPEAKING ONLY. PT WAS SLIGHTLY AGITATED BUT WAS VAZQUEZ RELAXED WHEN BATHROOM NEEDS WERE ATTENDED. PT ALSO COMMUNICATED THAT SHE WAS HUNGRY. PT WAS ABLE TO AMBULATE IN A STEADY GAIT, STANDBY ASSISTANCE WAS PROVIDED. REPORT GIVEN AT BEDSIDE BY DL LIN NURSE. V/S FOLLOWS: T 98.1 P 89 R 20 B/P 161/86 02 96% ON ROOM AIR.
[2020-02-20] MEDS ORDERED: CRUSHER, PILL MC ONE (21:09)
--- NOTE | 2020-02-20 21:10 | NUR ---
PT MOVED CLOSER TO NURSES STATION DUE TO BEING A FALLS RISKS AND CONFUSED. PT ALSO GIVEN ALL DUE MEDS AT THIS TIME. PT EDUCATED REGARDING MEDICATION BUT WAS UNABLE TO VERBALIZED UNDERSTANDING. PT WAS ANXIOUS ABOUT WAITING FOR HER MEAL. NURSING BINDER LOCKSTITCH WILL BRING SANDWICH TO PATIENT. NORMAL SALINE HUNG AND RUNNING AT 50MLS/HR ORDERED.
[2020-02-20] MEDS: DOCUSATE SODIUM 100 MG GELCAP PO SCH (21:23)
[2020-02-20] MEDS: ATORVASTATIN 20 MG TAB PO SCH (21:24)
[2020-02-20] MEDS: METOPROLOL 25 MG TAB PO SCH (21:25)
[2020-02-20] MEDS: NACL 0.9% 1,000 ML IV SCH (21:37)
--- NOTE | 2020-02-20 22:00 | NUR ---
SANDWICH AND BLANKET BROUGHT TO PT PER REQUEST. PT LYING DOWN IN BED RESTING NO S/S OF PAIN OR DISTRESS NOTED. ALL DROPLET AND FALLS PRECAUTIONS IN PLACE.
[2020-02-20] MEDS ORDERED: POTASSIUM CHLORIDE 40 MEQ, LIDOCAINE MPF 1% 25 MG in NACL 0.9% 250 ML IV ONE (22:35)
--- NOTE | 2020-02-20 23:00 | NUR ---
MD MORTON ORDERED 40MEQ OF K-DUR FOR HYPOKALEMIA. PT GIVEN ORALS TABS AND SWALLOWED THEM WITH NO ISSUE.
[2020-02-21] VITALS: BP 120/66
[2020-02-21] MEDS: MORPHINE SULFATE 2 MG/ML SYR IVP PRN ×4 (00:35→23:31)
--- NOTE | 2020-02-21 00:40 | NUR ---
PT MOANING AND POINTING TO STOMACH VIA JUSTICE COURT DEPUTY CLERK, PT C/O OF 9/10 PAIN IN ABDOMEN. SPOKE WITH MD RESIDENT DIAZ, HE ORDERED AN IVP/PRN MORPHINE 2MG FOR SEVERE PAIN. PT GIVEN PRN IVP MORPHINE FOR SEVERE PAIN, WILL CONTINUE TO MONITOR FOR PAIN REIELF AND SAFETY. V/S FOLLOWS: T 98.4 P 70 R 18 B/P 120/66 02 95% ON ROOM AIR. ALL FALLS AND DROPLET PRECAUTIONS IN PLACE.
[2020-02-21] MEDS ORDERED: MAG SULF 2000 MG/WATER PREMIX 50 ML IV ONE (01:50)
--- NOTE | 2020-02-21 02:45 | NUR ---
MAG RIDER HUNG AND RUNNING AT 25MLS/HR FOR LOW MAGNESIUM.
[2020-02-21 04:00] VITALS: BP 128/49
--- NOTE | 2020-02-21 04:30 | NUR ---
PT WAS STANDBY ASSIST TO TOILET AND BACK. MAGNESIUM RIDER COMPLETED, IV SITE INTACT AND RUNNING NORMAL SALINE AT 50MLS/HR ORDERED. V/S FOLLOWS: T 97.1 P 68 R 18 B/P 128/49 02 95%. ALL DROPLET AND FALLS PRECAUTIONS IN PLACE.
--- NOTE | 2020-02-21 06:53 | NUR ---
PT C/O SEVERE STOMACH PAIN , SHE WAS GIVEN IVP MORPHINE . WILL ENDORSE TO NEXT SHIFT TO MONITOR FOR EFFECT.
--- NOTE | 2020-02-21 07:20 | NUR ---
RECEIVED BEDSIDE SHIFT REPORT FROM TRAFFIC CONTROL OFFICER NURSE FOR CONTINUATION OF CARE.
[2020-02-21 07:42] LABS: BASOPHILS # (AUTO) 0.1 K/uL (0.00-0.22); BASOPHILS % (AUTO) 1.3 % (0.0-2.0); EOSINOPHILS # (AUTO) 0.6 K/uL (0-0.4); EOSINOPHILS % (AUTO) 11.1 % (0.0-4.0); HEMATOCRIT 34.8 % (36-48); HEMOGLOBIN 12.1 g/dL (12.0-16.0); LYMPHOCYTES # (AUTO) 1.5 K/uL (2.5-16.5); LYMPHOCYTES % (AUTO) 28.4 % (20.5-51.1); MEAN CORPUSCULAR HEMOGLOBIN 36 pg (27-31); MEAN CORPUSCULAR HGB CONC 35 g/dL (33-37); MEAN CORPUSCULAR VOLUME 102.1 fL (80-94); MONOCYTES # (AUTO) 0.5 K/uL (0.8-1.0); MONOCYTES % (AUTO) 9.7 % (1.7-9.3); NEUTROPHILS # (AUTO) 2.6 K/uL (1.8-7.7); NEUTROPHILS % (AUTO) 49.5 % (42.2-75.2); PLATELET COUNT (AUTO) 175 K/uL (140-450); RED BLOOD CELL COUNT(AUTO) 3.41 MIL/uL (4.20-5.40); RED CELL DISTRIBUTION WIDTH 13.7 % (11.6-13.7); WHITE BLOOD COUNT (AUTO) 5.2 K/uL (4.8-10.8)
[2020-02-21 07:57] LABS: ANION GAP 9.8 (8-16); CARBON DIOXIDE 27.6 mmol/L (21-32); CHLORIDE 106 mmol/L (98-107); CREATININE 0.6 mg/dL (0.6-1.3); GLUCOSE 139 mg/dL (74-106); POTASSIUM 3.4 mmol/L (3.5-5.1); SODIUM SERUM 140 mmol/L (136-145); UREA NITROGEN, BLOOD 4 mg/dL (7-18)
[2020-02-21 08:00] VITALS: BP 158/68
[2020-02-21 08:05] LABS: CHOL/HDL RATIO 4.5 (1-4.5); MAGNESIUM 2.1 mg/dL (1.8-2.4); PHOSPHORUS 2.6 mg/dL (2.5-4.9)
[2020-02-21] MEDS ORDERED: FAMOTIDINE 20 MG TAB PO SCH (09:00)
[2020-02-21] MEDS ORDERED: LISINOPRIL 5 MG TAB PO SCH (09:00)
[2020-02-21] MEDS: FUROSEMIDE 20 MG/2 ML VIAL IVP SCH (09:54)
[2020-02-21] MEDS: ASPIRIN 81 MG TAB.CHEW PO SCH (09:55)
[2020-02-21] MEDS: SUCRALFATE 1 GM TAB PO SCH ×4 (09:56→20:40)
[2020-02-21] MEDS: METOPROLOL 25 MG TAB PO SCH ×2 (09:56→20:41)
[2020-02-21] MEDS: VALSARTAN 80 MG TAB PO SCH (09:56)
[2020-02-21] MEDS: DOCUSATE SODIUM 100 MG GELCAP PO SCH ×2 (09:56→20:40)
--- NOTE | 2020-02-21 10:00 | NUR ---
MEDICATIONS ADMINISTERED, USED PILL CUTTER TO ASSIST. PATIENT IS HEBREW SPEAKING. PATIENT POINTS TO STOMACH AND SPEAKS HEBREW, PATIENT APPEARS TO BE IN PAIN. WILL USE BLUE PHONE TO ASSIST WITH TRANSLATION. PATIENT TOLERATED BREAKFAST. WILL CONTINUE TO MONITOR.
--- NOTE | 2020-02-21 10:50 | NUR ---
CONCRETE PRODUCTS DISPATCHER NOTE: Basic Screen: Yes High Risk DC Screen [place]: KIERA Campbell Relationship: DAUGHTER Pre-Admission Living Arrangements: SNF Other: [facility] Prior ADL Needs Assistance Current Home Health Name/Tel: N/A Current DME/02 Name/Tel: [employer] Current Hospice Name/Tel: N/A Current Dialysis Name/Tel: N/A Healthcare Decision Maker: Next of Kin Other: [facility] Advance Directive No Physician Orders for Life Sustaining Treatment Form No Person Taught: Patient Discipline: Case Mgt/Social Svcs Tentative Discharge Plan/Destination: SNF/ECF Other: [facility] Will require assistance post discharge: No Referred to [employer]en Brush Maker: No Tentative Discharge Plan Summary: PATIENT IS A 89-YEAR-OLD FEMALE ADMITTED FOR CHEST PAIN AND R/O ACS. LETICIAN HAS PMHX OF HTN, CHF, GASTRIC ULCER, AND GERD. PATIENT WAS ADMITTED [place] [facility] [place] CONTACTED [facility] TO VERIFY DEMOGRAPHICS [phone] [facility] [place]. PER ZACK PATIENT IS SENIOR CARE AND IS CURRENTLY ON A BED HOLD. ZACK REPORTED THAT PATIENT IS ALERT/ORIENTED X3 ADN NEEDS ASSISTANCE WITH DRESSING HERSELF AND BATHING. TENTATIVE DISCHARGE PLAN IS FOR PATIENT TO RETURN TO [facility] [place]. NO FURTHER NEEDS IDENTIFIED. Signature: AMY DUVAL Date: February 21, 2020 Time: 10:48
--- NOTE | 2020-02-21 11:00 | NUR ---
WITH THE ASSISTANCE OF CATERING CHEF, BLUE PHONE, PATIENT STATED SHE HAS SOB, AND CHEST PAIN. MORPHINE GIVEN. WILL CONTINUE TO MONITOR.
[2020-02-21 12:00] VITALS: BP 134/64
[2020-02-21] MEDS ORDERED: AZITHROMYCIN 250 MG TAB PO SCH (14:00)
[2020-02-21] MEDS ORDERED: POTASSIUM CHLORIDE 10 MEQ TABER PO SCH (14:00)
--- NOTE | 2020-02-21 14:11 | NUR ---
SPOKE WITH DR. MENA CONCERNING SPUTUM COLLECTION, PT IS AWAKE AND ALERT, PT ONLY SPEAKS [place]. AND IS PUI PT, RN ADONAY WILL USE BLUE PHONE TO COMMUNICATE WITH PT ON INSTRUCTING PT TO GIVE SAMPLE
--- NOTE | 2020-02-21 14:36 | NUR ---
USED [employer] PHONE, SOFTWARE LICENSING ANALYST NUMBER [id number]. INSTRUCTED TO PROVIDE SPUTUM THROUGH DEEP COUGH, IF UNABLE TO COUGH DEEP TO PLEASE GIVE BEST EFFORT. SCANT SPUTUM COLLECTED. MEDICATIONS ADMINISTERED. WILL CONTINUE TO MONITOR.
[2020-02-21] MEDS ORDERED: ALBUTEROL HFA MDI 90 MCG/ACTUATION 8 GM INH PRN (14:40)
[2020-02-21] MEDS: NACL 0.9% 1,000 ML IV SCH (15:44)
[2020-02-21 16:00] VITALS: BP 120/27
--- NOTE | 2020-02-21 18:29 | NUR ---
PATIENT IS RESTING IN BED, PATIENT COMPLAINS OF PAIN IN ABD, MORPHINE GIVEN. WILL CONTINUE TO MONITOR.
--- NOTE | 2020-02-21 19:20 | NUR ---
RECEIVED BEDSIDE REPORT FROM DAY SHIFT NURSE. PATIENT IS AWAKE AND ALERT. RESPIRATION EVEN UNLABORED ON ROOM AIR. NO DISTRESS NOTED. SKIN IS WARM AND DRY. SALINE LOCKED. ALL SAFETY MEASURES IN PLACE. BED IS AT LOW POSITION. CALL LIGHT WITHIN REACH. 1:1 SITTER. WILL CONTINUE TO MONITOR.
--- NOTE | 2020-02-21 19:21 | NUR ---
BEDSIDE SHIFT REPORT GIVEN TO MANAGER OF GLOBAL NURSE FOR CONTINUATION OF CARE.
[2020-02-21 20:00] VITALS: BP 131/52
[2020-02-21] MEDS ORDERED: MELATONIN 3 MG TAB PO PRN (20:00)
--- NOTE | 2020-02-21 20:10 | NUR ---
INITIAL ASSESSMENT DONE. VITALS WERE TAKEN. PATIENT IN STABLE CONDITION. SATING 96% ON ROOM AIR. SITTER AT BEDSIDE. WILL CONTINUE TO MONITOR.
--- NOTE | 2020-02-21 20:40 | NUR ---
ALL SCHEDULED MEDS WERE GIVEN PER ORDER. NO ASE NOTED. WILL CONTINUE TO MONITOR.
[2020-02-21] MEDS: ATORVASTATIN 20 MG TAB PO SCH (20:41)
--- NOTE | 2020-02-21 21:00 | NUR ---
PATIENT IS HUNGRY. PROVIDED WITH SANDWICH. SITTER AT BEDSIDE. WILL CONTINUE TO MONITOR.
--- NOTE | 2020-02-21 21:00 | NUR ---
PT SAT 96% HR 64 ON RA
--- NOTE | 2020-02-21 23:16 | NUR ---
CHECKED PATIENT. PATIENT SLEEPING RESPIRATION EVEN UNLABORED ON ROOM AIR. SITTER AT BEDSIDE WILL CONTINUE TO MONITOR.
--- NOTE | 2020-02-21 23:31 | NUR ---
PATIENT IS SCREAMING AND CRYING. COMPLAINING OF ABDOMINAL PAIN 8/. PRN PAIN MED AD MINISTERED PER ORDER. WILL CONTINUE TO MONITOR. SITTER AT BEDSIDE
[2020-02-22] VITALS: BP 147/65
--- NOTE | 2020-02-22 00:05 | NUR ---
VITALS WERE TAKEN. PATIENT IN STABLE CONDITION. NO DISTRESS NOTED. WILL CONTINUE TO MONITOR.
--- NOTE | 2020-02-22 01:10 | NUR ---
PATIENT IS RESTLESS CANT FALL ASLEEP. PRN MELATONIN GIVEN PER ORDER. WILL CONTINUE TO MONITOR.
[2020-02-22 01:12] LABS: APPEARANCE,URINE CLEAR (CLEAR); BILIRUBIN,URINE NEGATIVE (NEGATIVE); BLOOD, URINE NEGATIVE (NEGATIVE); COLOR,URINE YELLOW (YELLOW); LEUKOCYTE ESTERASE ,URINE NEGATIVE (NEGATIVE); NITRITE, URINE NEGATIVE (NEGATIVE); PH,URINE 6.5 (5.0-9.0); UGLUCOSE NEGATIVE (NEGATIVE)
--- NOTE | 2020-02-22 02:00 | NUR ---
PATIENT IN PAIN 10/10 SCREAMING, YELLING, AND CRYING. NOTIFIED MD. AWAITING FOR NEW ORDERS.
[2020-02-22] MEDS ORDERED: MORPHINE SULFATE 2 MG/ML SYR IVP ONE (02:15)
--- NOTE | 2020-02-22 02:45 | NUR ---
ADMINISTERED MORPHINE 2MG FOR PAIN PER ORDER. WILL CONTINUE TO MONITOR.
[2020-02-22 04:00] VITALS: BP 129/43
--- NOTE | 2020-02-22 04:03 | NUR ---
VITALS WERE TAKEN. PATIENT IN STABLE CONDITION. NO DISTRESS NOTED. WILL CONTINUE TO MONITOR.
[2020-02-22] MEDS: PANTOPRAZOLE 40 MG INJ VIAL IVP SCH (05:50)
--- NOTE | 2020-02-22 05:50 | NUR ---
ADMINISTERED PROTONIX PER MD ORDER. WILL CONTINUE TO MONITOR.
[2020-02-22] MEDS ORDERED: DICYCLOMINE HCL LIQUID 10 MG/5 ML UDC PO ONE (06:20)
[2020-02-22] MEDS ORDERED: ALUMINUM HYD/MAG/SIMETHICONE 30 ML UDC PO ONE (06:20)
[2020-02-22] MEDS ORDERED: LIDOCAINE VISCOUS 2% 20 ML UDC PO ONE (06:20)
--- NOTE | 2020-02-22 06:47 | NUR ---
PATIENT HAS BEEN SCREENED AND CATEGORIZED HIGH NUTRITION RISK. PATIENT WILL BE SEEN WITHIN 1-2 DAYS OF ADMISSION. 02/22/20-02/23/20 GENARO NEWELL MS, RDN
--- NOTE | 2020-02-22 07:13 | NUR ---
ENDORSED GIVEN TO DAY SHIFT NURSE. PATIENT IN STABLE CONDITION.
--- NOTE | 2020-02-22 07:16 | NUR ---
RECEIVED REPORT FROM PHARMACEUTICAL ASSISTANT NURSE. AOX2, NO C/O PAIN, NO SOB, RESPIRATIONS ARE EVEN AND UNLABORED. ON ROOM AIR. IV ON RAC 22G ON SALINE LOCK. TELEMONITOR ATTACHED. PLAN OF CARE DISCUSSED. PT VERBALIZED UNDERSTANDING. SAFETY PRECAUTIONS IN PLACE. CALL LIGHT WITHIN REACH. WILL CONTINUE TO MONITOR
[2020-02-22 07:21] LABS: EOSINOPHILS # (AUTO) 0.3 K/uL (0-0.4); HEMATOCRIT 36.7 % (36-48); HEMOGLOBIN 12.7 g/dL (12.0-16.0); LYMPHOCYTES # (AUTO) 1.5 K/uL (2.5-16.5); LYMPHOCYTES % (AUTO) 31.2 % (20.5-51.1); MEAN CORPUSCULAR HEMOGLOBIN 35 pg (27-31); MEAN CORPUSCULAR HGB CONC 35 g/dL (33-37); MEAN CORPUSCULAR VOLUME 101.9 fL (80-94); MONOCYTES # (AUTO) 0.4 K/uL (0.8-1.0); MONOCYTES % (AUTO) 8.7 % (1.7-9.3); NEUTROPHILS # (AUTO) 2.5 K/uL (1.8-7.7); NEUTROPHILS % (AUTO) 52.1 % (42.2-75.2); PLATELET COUNT (AUTO) 180 K/uL (140-450); RED BLOOD CELL COUNT(AUTO) 3.61 MIL/uL (4.20-5.40); WHITE BLOOD COUNT (AUTO) 4.7 K/uL (4.8-10.8)
[2020-02-22 07:40] LABS: ANION GAP 12.8 (8-16); CARBON DIOXIDE 26.9 mmol/L (21-32); CHLORIDE 103 mmol/L (98-107); CREATININE 0.7 mg/dL (0.6-1.3); GLUCOSE 179 mg/dL (74-106); POTASSIUM 3.7 mmol/L (3.5-5.1); SODIUM SERUM 139 mmol/L (136-145); UREA NITROGEN, BLOOD 5 mg/dL (7-18)
[2020-02-22 07:46] LABS: MAGNESIUM 1.6 mg/dL (1.8-2.4)
[2020-02-22 08:00] VITALS: BP 143/93
--- NOTE | 2020-02-22 08:50 | NUR ---
DUE MORNING MEDS GIVEN TOLERATED WELL.
[2020-02-22] MEDS: SUCRALFATE 1 GM TAB PO SCH ×4 (09:00→20:28)
[2020-02-22] MEDS: FUROSEMIDE 20 MG/2 ML VIAL IVP SCH (09:00)
[2020-02-22] MEDS: ASPIRIN 81 MG TAB.CHEW PO SCH (09:00)
[2020-02-22] MEDS: METOPROLOL 25 MG TAB PO SCH (09:01)
[2020-02-22] MEDS: DOCUSATE SODIUM 100 MG GELCAP PO SCH ×2 (09:01→20:28)
[2020-02-22] MEDS: AZITHROMYCIN 250 MG TAB PO SCH (09:01)
[2020-02-22] MEDS: VALSARTAN 80 MG TAB PO SCH (09:01)
[2020-02-22] MEDS: MORPHINE SULFATE 2 MG/ML SYR IVP PRN ×3 (10:00→21:33)
--- NOTE | 2020-02-22 10:00 | NUR ---
WITH C/O ACHING EPIGASTRIC PAIN 05/24. MEDICATED WITH MORPHINE. WILL REASSESS IN 1 HOUR
[2020-02-22] MEDS ORDERED: MAG SULF 2000 MG/WATER PREMIX 50 ML IV SCH (11:00)
[2020-02-22] MEDS: NACL 0.9% 1,000 ML IV SCH (11:19)
--- NOTE | 2020-02-22 11:48 | NUR ---
RECEIVED CALL FROM PILAR FROM LAB. PT IS COVID NEGATIVE FOR FIRST TEST
[2020-02-22 12:00] VITALS: BP 136/74
--- NOTE | 2020-02-22 13:00 | NUR ---
INFORMED CONSENT OBTAINED FROM PT'S DAUGHTER JEANIE BEE VIA PHONE FOR CT ABD WITH CONTRAST.
--- NOTE | 2020-02-22 13:30 | NUR ---
TITRATED 02 TO 3L THEN CHANGE TO NASAL CANNULA. O2SAT 94%, NO SOB
--- NOTE | 2020-02-22 15:01 | NUR ---
WITH C/O ACHING EPIGASTRIC PAIN 05/24. MEDICATED WITH MORPHINE. WILL REASSESS IN 1 HOUR
--- NOTE | 2020-02-22 15:05 | NUR ---
COVID SPECIMEN OBTAINED AND SENT TO LAB
--- NOTE | 2020-02-22 15:15 | NUR ---
RADIOLOGY CALLED. THEY ARE UNABLE TO DO CT ABD DUE TO PT'S PUI STATUS. RESIDENT MD AWARE
[2020-02-22 16:00] VITALS: BP 124/48
--- NOTE | 2020-02-22 17:36 | NUR ---
PT IN BED ASLEEP. NO APPARENT DISTRESS
--- NOTE | 2020-02-22 18:30 | NUR ---
PT LAST BM WAS 02/20/20. RESIDENT MD MADE AWARE. MINERAL OIL ENEMA GIVEN ORDERED.
--- NOTE | 2020-02-22 19:17 | NUR ---
ENDORSED TO CHEMICAL PROCESSING EQUIPMENT REPAIRER NURSE FOR CONTINUITY OF CARE. IN STABLE CONDITION
--- NOTE | 2020-02-22 19:18 | NUR ---
RECEIVED BEDSIDE REPORT FROM DAY SHIFT NURSEROYCE. NO C/O PAIN, NO SOB, RESPIRATIONS ARE EVEN AND UNLABORED. ON ROOM AIR. IV SITE ON RAC 18G, RUNNING NS @ 50MLS/HR. INTACT, PATENT, AND ASYMPTOMATIC. SKIN INTACT, WARM AND DRY TO TOUCH. PLAN OF CARE DISCUSSED. PT VERBALIZED UNDERSTANDING. SAFETY PRECAUTIONS IN PLACE. CALL LIGHT WITHIN REACH. WILL CONTINUE TO MONITOR
[2020-02-22 20:00] VITALS: BP 112/57
--- NOTE | 2020-02-22 20:35 | NUR ---
GIVEN CARAFATE, COLACE, AND HEPARIN MD ORDERED. PT TOLERATED WELL. PT C/O SOB. CALLED RT FOR BREATHING TX.
[2020-02-22] MEDS ORDERED: ALBUTEROL 0.083% 2.5 MG/3 ML NEBU INH ONE (20:51)
[2020-02-22] MEDS ORDERED: LORazepam 0.5 MG TAB PO ONE (21:20)
--- NOTE | 2020-02-22 21:33 | NUR ---
PT REFUSED BREATHING TX AND ASKING ATIVAN. PT STATE ATIVAN WORKS WHENEVER SHE HAS AGITATING AND SOB. REPORTED DRDa AND RECEIVED ORDER. PT ALSO C/O 04/23 ABD PAIN. GIVEN ATIVAN AND MORPHINE MD ORDERED. PT TOLERATED WELL.
--- NOTE | 2020-02-22 22:35 | NUR ---
PT SLEEPING IN BED COMFORTABLY. NO ACUTE DISTRESS NOTED.
[2020-02-23] VITALS: BP 122/77
--- NOTE | 2020-02-23 00:05 | NUR ---
VS CHECKED, WITHIN PT'S BASELINE. WILL CONTINUE TO MONITOR.
--- NOTE | 2020-02-23 02:14 | NUR ---
PT SLEEPING IN BED COMFORTABLY. NO ACUTE DISTRESS NOTED.
[2020-02-23] MEDS: NACL 0.9% 1,000 ML IV SCH (03:15)
[2020-02-23 04:00] VITALS: BP 122/56
--- NOTE | 2020-02-23 04:17 | NUR ---
VS CHECKED, WITHIN PT'S BASELINE, WILL CONTINUE TO MONITOR.
[2020-02-23 06:10] LABS: ANION GAP 11.2 (8-16); BASOPHILS # (AUTO) 0.1 K/uL (0.00-0.22); BASOPHILS % (AUTO) 2.5 % (0.0-2.0); CARBON DIOXIDE 29.1 mmol/L (21-32); CHLORIDE 105 mmol/L (98-107); CREATININE 0.7 mg/dL (0.6-1.3); EOSINOPHILS # (AUTO) 0.6 K/uL (0-0.4); EOSINOPHILS % (AUTO) 12.5 % (0.0-4.0); GLUCOSE 146 mg/dL (74-106); HEMATOCRIT 35.3 % (36-48); HEMOGLOBIN 12.2 g/dL (12.0-16.0); LYMPHOCYTES # (AUTO) 1.6 K/uL (2.5-16.5); LYMPHOCYTES % (AUTO) 35.3 % (20.5-51.1); MEAN CORPUSCULAR HEMOGLOBIN 35 pg (27-31); MEAN CORPUSCULAR HGB CONC 35 g/dL (33-37); MEAN CORPUSCULAR VOLUME 102.2 fL (80-94); MONOCYTES # (AUTO) 0.5 K/uL (0.8-1.0); MONOCYTES % (AUTO) 11.5 % (1.7-9.3); NEUTROPHILS # (AUTO) 1.7 K/uL (1.8-7.7); NEUTROPHILS % (AUTO) 38.2 % (42.2-75.2); PLATELET COUNT (AUTO) 188 K/uL (140-450); POTASSIUM 3.3 mmol/L (3.5-5.1); RED BLOOD CELL COUNT(AUTO) 3.46 MIL/uL (4.20-5.40); RED CELL DISTRIBUTION WIDTH 13.8 % (11.6-13.7); SODIUM SERUM 142 mmol/L (136-145); UREA NITROGEN, BLOOD 4 mg/dL (7-18); WHITE BLOOD COUNT (AUTO) 4.4 K/uL (4.8-10.8)
[2020-02-23 06:24] LABS: MAGNESIUM 1.7 mg/dL (1.8-2.4)
--- NOTE | 2020-02-23 06:50 | NUR ---
PT IN STABLE CONDITION. WILL ENDORSE PT TO DAY SHIFT NURSEHUGO FOR CONTINUOUS CARE.
[2020-02-23] MEDS: MORPHINE SULFATE 2 MG/ML SYR IVP PRN (07:00)
--- NOTE | 2020-02-23 07:15 | NUR ---
RECEIVED REPORT FROM PHARMACY RETAIL SUPPORT SPECIALIST NURSE MIKE FOR CONTINUITY OF CARE. PATIENT IN STABLE CONDITION. RESPIRATIONS EVEN AND UNLABORED. IV INTACT AND PATENT. SAFETY MEASURES IN PLACE. BED IN LOW POSITION. SITTER WITHIN REACH. WILL CONTINUE TO MONITOR.
[2020-02-23 08:00] VITALS: BP 127/57
--- NOTE | 2020-02-23 08:45 | NUR ---
X-RAY AT BEDSIDE FOR CHEST X-RAY AT THIS TIME. PATIENT IN STABLE CONDITION.
[2020-02-23] MEDS: AZITHROMYCIN 250 MG TAB PO SCH (09:28)
[2020-02-23] MEDS: VALSARTAN 80 MG TAB PO SCH (09:28)
[2020-02-23] MEDS: PANTOPRAZOLE 40 MG INJ VIAL IVP SCH (09:28)
[2020-02-23] MEDS: ASPIRIN 81 MG TAB.CHEW PO SCH (09:28)
--- NOTE | 2020-02-23 09:28 | NUR ---
GAVE ORDERED DUE MEDICATIONS AT THIS TIME. PATIENT TOLERATED WELL. BED IN LOW POSITION. BED ALARM ON. SITTER WITHIN REACH. WILL CONTINUE TO MONITOR.
[2020-02-23] MEDS: DOCUSATE SODIUM 100 MG GELCAP PO SCH ×2 (09:29→20:45)
[2020-02-23] MEDS: SUCRALFATE 1 GM TAB PO SCH ×4 (09:29→20:45)
[2020-02-23] MEDS: FUROSEMIDE 20 MG/2 ML VIAL IVP SCH (09:29)
--- NOTE | 2020-02-23 09:57 | NUR ---
CRITICAL LAB MRSA NARES POSITIVE RESULT. CORY SPEAR IS AWARE.
[2020-02-23] MEDS ORDERED: SODIUM PHOSPHATE 118 ML ENEM RC PRN (10:55)
[2020-02-23] MEDS ORDERED: POTASSIUM CHLORIDE 10 MEQ TABER PO SCH (11:00)
--- NOTE | 2020-02-23 11:10 | NUR ---
GAVE FLEET ENEMA AT THIS TIME. PATIENT C/O STOMACH PAIN LAST BOWEL MOVEMENT 02/20/2020 ENDORSED FROM FOREST NURSERY WORKER NURSE. PATIENT HAD A INSTANT SMALL BOWEL MOVEMENT. PATIENT IN STABLE CONDITION. BED IN LOW POSITION. CALL LIGHT AT BEDSIDE. WILL CONTINUE TO MONITOR.
[2020-02-23 12:00] VITALS: BP 128/74
--- NOTE | 2020-02-23 12:31 | NUR ---
ST CLARIFICATION NOTE Pt WAS ABLE TO TOLERATE PUREE, MSC, AND THIN LIQUIDS BY CUP W/O DIFFICULTY OR OVERT S/S OF ASPIRATION OR PENETRATION NOTED. Pt HAS DENTURES TO COMPLETE DENTITION, AND WAS ABLE TO MASTICATE MSC ADEQUATELY. AP TRANSFER AND SWALLOW RESPONSE WAS TIMELY WITH FULL LARYNGEAL ELEVATION AND EXCURSION. Pt COMPLAINED OF STOMACH PAIN ASSOCIATED WITH CONSTIPATION, PER RN. RN NOTED Pt WAS GIVEN AN ENEMA TO RELIEVE CONSTIPATION. REC TO CONTINUE MSC FOOD AND THIN LIQUID DIET W/ ASPIRATION PRECAUTIONS, ORAL CARE, TRAY SET UP, AND INTERMITTENT SUPERVISION. D/C SKILLED ST FOR SWALLOW. Pt HAS FUNCTIONAL SWALLOW FOR Pt.
[2020-02-23] MEDS ORDERED: MAGNESIUM OXIDE 400 MG TAB PO SCH (13:00)
--- NOTE | 2020-02-23 13:10 | NUR ---
CLEANED PATIENT AFTER SMALL BOWEL MOVEMENT. PATIENT TOLERATED WELL. BED IN LOW POSITION. BED ALARM ON. SITTER WITHIN REACH. WILL CONTINUE TO MONITOR.
--- NOTE | 2020-02-23 14:25 | NUR ---
02/23/20 RD INITIAL ASSESSMENT COMPLETED PLEASE REFER TO NUTRITION ASSESSMENT UNDER CARE ACTIVITY FOR ESTIMATED NUTRITIONAL NEEDS. 1. CONTINUE CARDIAC MECHANICAL SOFT DIET TOLERATED 2. RECOMMEND GLUCERNA BID FOR GLUCOSE CONTROL 3. PROVIDE ASSISTANCE WITH MEALS 4. RD TO FOLLOW-UP 3-5 DAYS, MODERATE RISK MAMADOU PUTNAM, RD
--- NOTE | 2020-02-23 14:35 | NUR ---
DC [age] YRS OLD FEMALE PATIENT AMHARIC SPEAKING ONLY WAS ADMITTED FROM [facility] WITH A DX OF CHEST PAIN R/O ACS . PT HAS A HX OF HTN, CHF, GASTRIC ULCER . CXR SHOWED INDICATIVE CARDIOMEGALY AND PROMINENT PULMONARY VASCULAR WITH TRACE PLEURAL THICKENING VS EDEMA. 1ST COVID TEST NEGATIVE. EKG NSR 2ND EKG PENDING ACS MEDS. ADMINISTERED IVF , IV ABX AZITHROMYCIN AND CEFTRIAXONE. SEEN BY GAME PROGRAMER WAITING FOR ECHO , ORDERED ASA 81 MG. DC PLAN AWAITING FOR THE 2ND COVID TEST RESULT. CM TO FOLLOW. Addendum: 02/24/20 at 1038 by Swati Valenzuela CM 2ND COVID TESTING IS STILL PENDING. ON ROOM AIR - O2 SAT 97%. CURRENT LABS INCLUDE WBC 4.4, H/H 12.2/35.3, NA/K 142/3.3, BUN/CREA 4/0.7 AND MAG 1.7. CARDIO CONSULTS IN PLACE. FOR POSSIBLE DC BACK TO [facility] ONCE 2ND COVID TEST IS AVAILABLE. WILL FOLLOW UP. CONTACTED LAB [id number], ABLE TO SPEAK TO LAURI TO FOLLOW UP WITH THE COVID RESULTS. HE STATED IT WILL BE AVAILABLE TONIGHT OR TOMORROW MORNING. WILL FOLLOW UP. WILL INFORM DR. MONTALVO. Addendum: 02/25/20 at 1042 by Varsha Madrigal CM CALLED PATIENTS JEANIE SYKES [phone]. LEFT A VOICEMAIL TO CALL BACK TO DISCUSS DISCHARGE PLAN AND TRANSPORTATION. Addendum: 02/25/20 at 1043 by Varsha Madrigal CM LAB RESULT FOR SECOND COVID TEST CAME BACK NEGATIVE. PATIENT WILL BE DISCHARGING BACK TO [facility]. Addendum: 02/25/20 at 1049 by Varsha Madrigal CM FAXED CLINICALS AND COVID TEST TO [facility]. SPOKE TO [facility] IN ADMISSIONS THEY ARE REVIEWING DOCUMENTS AND WILL CONTACT ME BACK WITH A ROOM NUMBER. Addendum: 02/25/20 at 1100 by Varsha Madrigal CM TRIED CALLING PATIENTS OTHER CHILD KIERA CHUNG [phone], NO ANSWER AND CAN NOT LEAVE A VOICEMAIL DUE TO VOICEMAIL BOX NOT BEING SET UP. Addendum: 02/25/20 at 1126 by Varsha Madrigal CM SPOKE TO FRANCES AT [facility] PROVIDED ROOM 33 [address] FOR PATIENT. I LET HER KNOW WE ARE WAITING ON THE PATIENTS DAUGHTER TO CALL BACK. Addendum: 02/25/20 at 1130 by Varsha Madrigal CM SPOKE TO RYAN AVENDAÑO TO INFORM HER THAT [facility] HAS A BED AVAILABLE FOR PATIENT.
--- NOTE | 2020-02-23 14:53 | NUR ---
CALLED PATIENT DAUGHTER JEANIE FOR PATIENT. UPDATED JEANIE WITH PLAN OF CARE. ALL QUESTIONS ANSWERED AT THIS TIME. BED IN LOW POSITION. BED ALARM ON. SITTER WITHIN REACH. WILL CONTINUE TO MONITOR.
[2020-02-23 16:00] VITALS: BP 100/57
--- NOTE | 2020-02-23 16:33 | NUR ---
PATIENT SLEEP AT THIS TIME. RESPIRATIONS EVEN AND UNLABORED. BED IN LOW POSITION. BED ALARM ON. SITTER WITHIN REACH. WILL CONTINUE TO MONITOR.
--- NOTE | 2020-02-23 18:02 | NUR ---
PATIENT USING BEDSIDE COMMODE AT THIS TIME. PATIENT IN STABLE CONDITION. BED IN LOW POSITION. BED ALARM ON. SITTER WITHIN REACH. WILL CONTINUE TO MONITOR.
--- NOTE | 2020-02-23 19:16 | NUR ---
RECEIVED PT AWAKE , CAN FOLLOW COMMANDS AND CAN ADDRESS HER NEEDS . NOT IN ACUTE DISTRESS - O2 SAT WNL , IV SITE INTACT AND PATENT . SAFETY MEASURES IN PLACE , PLAN OF CARE DISCUSSED AND VERBALIZE UNDERSTANDING , C/O OF STOMACHACHE - PER NURSE SHE SAID PT C/O CONSTIPATION - THE NURSE GAVE HER FLEET ENEMA - PASSED OUT HARD BM IN A STONE LIKE APPERANCE. WILL CONT. TO MONITOR.
--- NOTE | 2020-02-23 19:16 | NUR ---
GAVE REPORT TO CONTACT LENS LATHE OPERATOR NURSE MEL FOR CONTINUITY OF CARE. PATIENT IN STABLE CONDITION.
[2020-02-23 20:00] VITALS: BP 144/66
--- NOTE | 2020-02-23 20:50 | NUR ---
RECEIVED PATIENT ON ROOM AIR, PULSE OX SAT 99%. NO SOB NOTED. PRN BREATHING TX NOT INDICATED AT THIS TIME. NO ACUTE RESPIRATORY DISTRESS NOTED AT THIS TIME. WILL CONTINUE TO MONITOR.
[2020-02-23] MEDS ORDERED: LACTULOSE 20 GM/30 ML UDC PO ONE (21:00)
[2020-02-23] MEDS: LORazepam 0.5 MG TAB PO PRN (22:07)
[2020-02-24] VITALS: BP 133/66
--- NOTE | 2020-02-24 | NUR ---
MADE ROUNDS , NO S/S OF ACUTE DISTRESS NOTED - WILL CONT. TO MONITOR
--- NOTE | 2020-02-24 02:00 | NUR ---
SLEEPING - O2 SAT WNL. - WILL CONT. TO MONITOR.
[2020-02-24] MEDS: NACL 0.9% 1,000 ML IV SCH ×2 (03:47→23:19)
[2020-02-24 04:00] VITALS: BP 128/62
--- NOTE | 2020-02-24 04:00 | NUR ---
MADE ROUNDS , NO S/S OF ACUTE DISTRESS NOTED - WILL CONT. TO MONITOR.
--- NOTE | 2020-02-24 06:00 | NUR ---
MADE ROUNDS , SLEEPING - O2 SAT WNL.
--- NOTE | 2020-02-24 07:25 | NUR ---
ENDORSE - PT - STABLE.
--- NOTE | 2020-02-24 07:26 | NUR ---
Received report from pm nurse Marzena. Pt asleep in bed, respirations even & nonlabored in room air with visible chest rise & fall. Left forearm IV intact with ongoing NS @ 50 ml/h. Call light within reach. Sitter by doorway for continuous monitoring.
[2020-02-24 08:00] VITALS: BP 128/86
--- NOTE | 2020-02-24 08:00 | NUR ---
Dr. Verdugo notified of low Mg and K+ results. Per , he will input orders accordingly.
--- NOTE | 2020-02-24 08:15 | NUR ---
Report given to RYAN Lombardo.
--- NOTE | 2020-02-24 08:20 | NUR ---
RECEIVED BEDSIDE REPORT ROM NIGHTSHIFT NURSE. PT RESTING IN BED. ABLE TO MAKE SOME NEEDS KNOWN. RESPIRATIONS EVEN AND UNLABORED WITH NO SOB OR RESPIRATORY DISTRESS. SKIN WARM AND DRY TO TOUCH. IV SITE IN LFA 22G IS CLEAN, DRY, AND INTACT. SAFETY MEASURES IN PLACE. WILL CONTINUE TO MONITOR
[2020-02-24] MEDS ORDERED: MAGNESIUM OXIDE 400 MG TAB PO SCH (09:00)
[2020-02-24] MEDS ORDERED: POTASSIUM CHLORIDE 10 MEQ TABER PO SCH (09:00)
[2020-02-24] MEDS: DOCUSATE SODIUM 100 MG GELCAP PO SCH ×2 (09:00→21:00)
[2020-02-24] MEDS: SUCRALFATE 1 GM TAB PO SCH ×4 (09:38→21:00)
[2020-02-24] MEDS: FUROSEMIDE 20 MG/2 ML VIAL IVP SCH (09:39)
[2020-02-24] MEDS: ASPIRIN 81 MG TAB.CHEW PO SCH (09:39)
[2020-02-24] MEDS: AZITHROMYCIN 250 MG TAB PO SCH (09:39)
[2020-02-24] MEDS: VALSARTAN 80 MG TAB PO SCH (09:40)
[2020-02-24] MEDS: PANTOPRAZOLE 40 MG INJ VIAL IVP SCH (09:40)
--- NOTE | 2020-02-24 09:40 | NUR ---
ADMINISTERED SCHED MED PRESCRIBED PER MD ORDER. PT TOLERATED WELL. MEDICATION EDUCATION PERFORMED. PT VERBALIZED UNDERSTANDING. SAFETY MEASURES IN PLACE. WILL CONTINUE TO MONITOR
[2020-02-24] MEDS ORDERED: CRUSHER, PILL MC ONE (09:51)
--- NOTE | 2020-02-24 11:13 | NUR ---
HOURLY ROUNDING. PT RESTING IN BED. ABLE TO MAKE NEEDS KNOWN. RESPIRATIONS EVEN AND UNLABORED WITH NO SOB OR RESPIRATORY DISTRESS. SKIN WARM AND DRY TO TOUCH. SAFETY MEASURES IN PLACE. WILL CONTINUE TO MONITOR
[2020-02-24] MEDS: MORPHINE SULFATE 2 MG/ML SYR IVP PRN (11:24)
--- NOTE | 2020-02-24 11:24 | NUR ---
PT CALLED AND COMPLAINED OF STOMACH PAIN AND RESTLESSNESS. PRN PAIN MEDICATION ADMINISTERED PRESCRIBED PER MD ORDER. PT TOLERATED WELL. MEDICATION EDUCATION PERFORMED. PT UNABLE TO VERBALIZE UNDERSTANDING. SAFETY MEASURES IN PLACE. WILL CONTINUE TO MONITOR
[2020-02-24] MEDS: LORazepam 0.5 MG TAB PO PRN (11:26)
[2020-02-24 12:00] VITALS: BP 100/74
--- NOTE | 2020-02-24 13:24 | NUR ---
ADMINISTERED SCHED MED PRESCRIBED PER MD ORDER. PT TOLERATED WELL. MEDICATION EDUCATION PERFORMED. PT VERBALIZED UNDERSTANDING. SAFETY MEASURES IN PLACE. WILL CONTINUE TO MONITOR
--- NOTE | 2020-02-24 15:51 | NUR ---
HOURLY ROUNDING. PT ASLEEP IN BED. RESPONSIVE TO VERBAL AND TACTILE STIMULI. RESPIRATIONS EVEN AND UNLABORED WITH NO SOB OR RESPIRATORY DISTRESS. SITTER MONITORING PT. SAFETY MEASURES IN PLACE. WILL CONTINUE TO MONITOR
[2020-02-24 16:00] VITALS: BP 109/64
--- NOTE | 2020-02-24 17:02 | NUR ---
ADMINISTERED SCHED MED PRESCRIBED PER MD ORDER. PT TOLERATED WELL. MEDICATION EDUCATION PERFORMED. PT VERBALIZED UNDERSTANDING. SAFETY MEASURES IN PLACE. WILL CONTINUE TO MONITOR
--- NOTE | 2020-02-24 19:26 | NUR ---
ENDORSED AT BEDSIDE TO NIGHTSHIFT NURSE. PT IS STABLE
--- NOTE | 2020-02-24 19:26 | NUR ---
RECEIVED PT SLEEPING AWAKEABLE , OBEYS SIMPLE COMMANDS , , NOT IN ACUTE DISTRESS - O2 SAT WNL . IV SITE INTACT AND PATENT . ON 1:1 SITTER - FALL RISK . SAFETY MEASURES IN PLACE . PLAN OF CARE DISCUSSED BUT LIMITED UNDERSTANDING DUE TO MENTAL STATUS AND LANGUAGE BARRIER. WILL CONT. TO MONITOR.
--- NOTE | 2020-02-24 22:00 | NUR ---
MADE ROUNDS , SLEEPING , AWAKABLE , OBEYS SIMPLE COMMANDS . NO S/S OF ACUTE DISTRESS NOTED AT THIS TIME - O2 SAT WNL. WILL CONT. TO MONITOR
--- NOTE | 2020-02-25 | NUR ---
MADE ROUNDS , SLEEPING - OS SAT WNL. ON 1:1 SITTER.
[2020-02-25 00:55] VITALS: BP 100/60
--- NOTE | 2020-02-25 02:00 | NUR ---
MADE ROUNDS , NO S/S OF ACUTE DISTRESS NOTED AT THIS TIME. ON 1:1 SITTER .
[2020-02-25 04:00] VITALS: BP 99/60
[2020-02-25 06:26] LABS: ANION GAP 12.7 (8-16); CARBON DIOXIDE 23.9 mmol/L (21-32); CHLORIDE 106 mmol/L (98-107); GLUCOSE 142 mg/dL (74-106); POTASSIUM 4.6 mmol/L (3.5-5.1); SODIUM SERUM 138 mmol/L (136-145)
[2020-02-25 06:27] LABS: CREATININE 0.7 mg/dL (0.6-1.3); UREA NITROGEN, BLOOD 5 mg/dL (7-18)
[2020-02-25 06:34] LABS: MAGNESIUM 1.8 mg/dL (1.8-2.4); PHOSPHORUS 3.8 mg/dL (2.5-4.9)
[2020-02-25 07:26] LABS: HEMATOCRIT 38.5 % (36-48); MEAN CORPUSCULAR HEMOGLOBIN 35 pg (27-31); MEAN CORPUSCULAR HGB CONC 34 g/dL (33-37); MEAN CORPUSCULAR VOLUME 103.9 fL (80-94); PLATELET COUNT (AUTO) 190 K/uL (140-450); RED BLOOD CELL COUNT(AUTO) 3.71 MIL/uL (4.20-5.40); RED CELL DISTRIBUTION WIDTH 14.2 % (11.6-13.7); WHITE BLOOD COUNT (AUTO) 4.6 K/uL (4.8-10.8)
--- NOTE | 2020-02-25 07:31 | NUR ---
ENDORSED PT - STABLE
--- NOTE | 2020-02-25 07:31 | NUR ---
RECEIVED REPORT FROM PRE SALES SYSTEMS ENGINEER NURSE. PT IS CURRENTLY ALERT, AWAKE, AND LAYING IN BED. RESPIRATIONS ARE EVEN AND UNLABORED ON ROOM AIR WITH SATURATIONS AT 95%. SKIN IS INTACT WITH IV ASYMPTOMATIC PATENT AND INFUSING PER ORDER. NO COMPLAINTS OF PAIN NOTED. SAFETY MEASURES IN PLACE AND WILL CONTINUE TO MONITOR.
[2020-02-25 08:00] VITALS: BP 122/75
--- NOTE | 2020-02-25 09:18 | NUR ---
PT AWAKE AND ALERT, NO SIGNS OF RESP. DISTRESS NOTED AT THIS TIME, PT ON RA, SPO2 97%, RN AT BEDSIDE, WILL CONTINUE TO MONITOR.
[2020-02-25] MEDS: MORPHINE SULFATE 2 MG/ML SYR IVP PRN (09:22)
[2020-02-25] MEDS: PANTOPRAZOLE 40 MG INJ VIAL IVP SCH (09:25)
[2020-02-25] MEDS: FUROSEMIDE 20 MG/2 ML VIAL IVP SCH (09:26)
[2020-02-25] MEDS: VALSARTAN 80 MG TAB PO SCH (09:26)
[2020-02-25] MEDS: SUCRALFATE 1 GM TAB PO SCH (09:26)
[2020-02-25] MEDS: AZITHROMYCIN 250 MG TAB PO SCH (09:27)
[2020-02-25] MEDS: ASPIRIN 81 MG TAB.CHEW PO SCH (09:27)
[2020-02-25] MEDS: DOCUSATE SODIUM 100 MG GELCAP PO SCH (09:27)
--- NOTE | 2020-02-25 09:46 | NUR ---
ADMINISTERED MEDICATIONS PER ORDER AND TOLERATED WELL. PT COMPLAINS OF 7/10 ABD PAIN PER BARBER APPRENTICE PHONE MORPHINE WAS ADMINISTERED FOR PAIN PER ORDER PARAMETERS. VITALS SIGNS WERE WITHIN NORMAL RANGE. SAFETY MEASURES IN PLACE AND WILL CONTINUE TO MONITOR
--- NOTE | 2020-02-25 10:03 | NUR ---
PT USED THE RESTROOM AND WAS CHANGED BY [facility] CONSULTANT. PT WANTED TO CALL JEANIE AND DIALED NUMBER PER PHONE IN ROOM. SAVAGE DID NOT ANSWER AND WILL TRY AGAIN AT A LATER TIME.
[2020-02-25 10:26] LABS: EOSINOPHILS % (MANUAL) 13 % (0-4); LYMPHOCYTES % (MANUAL) 46 % (20-46); MONOCYTES % (MANUAL) 4 % (5-12); MYELOCYTES % 1 % (0-0)
[2020-02-25 11:37] VITALS: BP 122/75
--- NOTE | 2020-02-25 11:45 | NUR ---
RECEIVED BEDSIDE REPORT FROM SUN. PT RESTING IN BED. SITTER AT DOORWAY. PT RESTING IN BED. ABLE TO MAKE SOME NEEDS KNOWN. RESPIRATIONS EVEN AND UNLABORED WITH NO SOB OR RESPIRATORY DISTRESS. SKIN WARM AND DRY TO TOUCH. SAFETY MEASURES IN PLACE. WILL CONTINUE TO MONITOR
[2020-02-25 12:00] VITALS: BP 118/57
--- NOTE | 2020-02-25 12:10 | NUR ---
REPORT GIVEN TO NICOLÁS AT [facility]. SAFETY MEASURES IN PLACE. WILL CONTINUE TO MONITOR
--- NOTE | 2020-02-25 13:25 | NUR ---
PRINTED DC INSTRUCTIONS. WENT OVER THEM WITH PATIENT. PT UNABLE TO SIGN FOR HERSELF. GAVE [facility] DC PAPERS TO DAUGHTER. INSTRUCTED ON WHAT TO DO WITH THEM. SHE VERBALIZED UNDERSTANDING. REMOVED INTACT IV CANNULA, ID BAND, AND ALLERGY BRACELET. PT CHANGED INTO HER OWN CLOTHING. ALL BELONGINGS GATHERED. PT WHEELED OUT AND GOING BACK TO [facility]. PT IS STABLE Addendum: 02/25/20 at 1507 by Munira Person RN RECEIVED PHONE CALL FROM [facility] SAYING THAT DAUGHTER FORGET TO GIVE DC PACKET. CALLED JEANIE [phone] TO TELL HER AGAIN TO GIVE [facility] DC PACKET. JEANIE VERBALIZED UNDERSTANDING AND SAID SHE WILL GIVE THEM THE PACKET.
== END 2020-02-25 13:25 | DRG 193 ==
LOC: EEVIPCON 17:46 → MED 17:46 → MMU 19:19 → MTU 21:10 → MMU 02-21 17:19
PROVIDERS: ADMIT General Practice; ATTEND General Practice
DX: J18.9 Pneumonia, unspecified organism (principal); I50.43 Acute on chronic combined systolic (congestive) and diastolic (congestive) heart failure; G93.41 Metabolic encephalopathy; E44.0 Moderate protein-calorie malnutrition; K21.9 Gastro-esophageal reflux disease without esophagitis; I11.0 Hypertensive heart disease with heart failure; Z66 Do not resuscitate; E87.6 Hypokalemia; R13.10 Dysphagia, unspecified; K25.9 Gastric ulcer, unspecified as acute or chronic, without hemorrhage or perforation; Z20.828 Contact with and (suspected) exposure to other viral communicable diseases; E78.5 Hyperlipidemia, unspecified; R73.03 Prediabetes; K92.89 Other specified diseases of the digestive system; Z68.22 Body mass index [BMI] 22.0-22.9, adult; Z88.8 Allergy status to other drugs, medicaments and biological substances; Z79.899 Other long term (current) drug therapy
CPT/HCPCS: 36415; 71045; 74018; 80048; 80053; 81003; 83036; 83690; 83735; 83880; 84100; 84443; 84484; 85025; 85610; 85730; 87081; 92610; 93005; 96374; 97110; 97112; 97116; 97161-GP; 97530; 99285; C9113; J0696; J1644; J1940; J2001; J2270; J2405; J3475; J3480; J7030; J7060; J7613; Q0092

== ENCOUNTER 2020-03-29 11:22 | Inpatient (IN) | payer OTHER, SELFPAY ==
[~2020-03-29] VITALS: Ht 152.4 cm; Wt 49.9 kg
[~2020-03-29 11:22] MED LIST changes: -ATI.5 PO; -CHLO118S2 TP; +CYAN100T65 PO; -CYT100 PO; +FOLI2000 PO; -MIRT15TA4 PO; +MULT-153 PO; -MUPI2CRE22 NS; -OMEP20TC12 PO; +SUCR1SUS7 PO
--- NOTE | 2020-03-29 11:22 | NUR ---
Patient BIBA BLS from [facility], transferred to bed 10. RN evaluating patient at bedside.
[2020-03-29 11:28] VITALS: BP 110/57
--- NOTE | 2020-03-29 11:30 | NUR ---
biba from [facility] per ems, pt c/o generalized ab pain x last night. denies n/v/d. pt continues to moan and hug abdomen. bowel sounds active in all 4 quadrants. abdomen is soft and round. pmh-chf, gerd, htn, dementia, generalized weakness, dysphagia, metabolic encephalopathy. anemia, afib a0x1 per facility, pt alert to self. pt hr 111. pt helps undress into gown. pt able to move all 4 extremities with equal strength. pt was able to amb with assistance from stretcher to bed, weak gait. mongolian speaking pt
--- NOTE | 2020-03-29 11:50 | NUR ---
iv inserted ands labs drawn bedside
[2020-03-29 12:01] LABS: BASOPHILS # (AUTO) 0.1 K/uL (0.00-0.22); BASOPHILS % (AUTO) 0.6 % (0.0-2.0); EOSINOPHILS # (AUTO) 0.1 K/uL (0-0.4); EOSINOPHILS % (AUTO) 0.5 % (0.0-4.0); HEMATOCRIT 38.8 % (36-48); HEMOGLOBIN 13.1 g/dL (12.0-16.0); LYMPHOCYTES # (AUTO) 0.7 K/uL (2.5-16.5); MEAN CORPUSCULAR HEMOGLOBIN 34 pg (27-31); MEAN CORPUSCULAR HGB CONC 34 g/dL (33-37); MEAN CORPUSCULAR VOLUME 101.4 fL (80-94); MONOCYTES # (AUTO) 0.9 K/uL (0.8-1.0); MONOCYTES % (AUTO) 6.6 % (1.7-9.3); NEUTROPHILS # (AUTO) 12.2 K/uL (1.8-7.7); NEUTROPHILS % (AUTO) 87.3 % (42.2-75.2); PLATELET COUNT (AUTO) 314 K/uL (140-450); RED BLOOD CELL COUNT(AUTO) 3.82 MIL/uL (4.20-5.40); RED CELL DISTRIBUTION WIDTH 14.3 % (11.6-13.7); WHITE BLOOD COUNT (AUTO) 13.9 K/uL (4.8-10.8)
--- NOTE | 2020-03-29 12:18 | NUR ---
# 14 FR Urinary catheter inserted utilizing sterile technique. Immediate return of 100 ml YELLOW urine noted. Urine sample collected and sent to lab. Pt tolerated procedure WELL.
--- NOTE | 2020-03-29 12:22 | NUR ---
PT TO CT VIA FABIOLA
[2020-03-29 12:25] LABS: ALBUMIN 3.6 g/dL (3.4-5.0); ASPARTATE AMINOTRANSFERASE 37 U/L (15-37); CARBON DIOXIDE 25.2 mmol/L (21-32); CHLORIDE 91 mmol/L (98-107); CREATININE 0.7 mg/dL (0.6-1.3); GLUCOSE 222 mg/dL (74-106); LIPASE 146 U/L (73-393); POTASSIUM 4.2 mmol/L (3.5-5.1); SODIUM SERUM 128 mmol/L (136-145); TOTAL BILIRUBIN 0.7 mg/dL (0.0-1.0); UREA NITROGEN, BLOOD 7 mg/dL (7-18)
--- NOTE | 2020-03-29 12:37 | NUR ---
CRITICAL LAB VALUE RECEIVED FROM LAB-- LACTIC ACID 3.0. DR KNOX MADE AWARE
[2020-03-29] MEDS ORDERED: INSULIN REGULAR, HUMAN 100 UNIT/ML VIAL SUBQ ONE (12:40)
[2020-03-29] MEDS ORDERED: NACL 0.9% 1,500 ML IV ONE (12:40)
[2020-03-29] MEDS ORDERED: PIPERACILLIN/TAZOBACTAM 3.375 GM in DEXTROSE 5% 50 ML IV ONE (12:40)
[2020-03-29] MEDS ORDERED: PIPERACILLIN/TAZOBACTAM 3.375 GM VIAL IV ONE (12:46)
--- NOTE | 2020-03-29 12:48 | NUR ---
DR KNOX INFORMED THAT PT HAS CHF, DR KNOX STATES GIVE 1500 ML BOLUS OF NACL
[2020-03-29] MEDS ORDERED: CIPROFLOXACIN 250 MG TAB PO ONE (12:55)
[2020-03-29] MEDS ORDERED: MORPHINE SULFATE 4 MG/ML SYR IVP ONE (12:55)
[2020-03-29] MEDS ORDERED: metroNIDAZOLE 250 MG/NS PREMIX 50 ML IV SCH (13:00)
--- NOTE | 2020-03-29 13:04 | NUR ---
4 UNITS OF HUMULIN R ADMINISTERED SUBQ, 1500 NACL BOLUS STARTED, AND ZOSYN RUNNING AT 100 MLS/HR
[2020-03-29 13:06] LABS: APPEARANCE,URINE CLEAR (CLEAR); BILIRUBIN,URINE NEGATIVE (NEGATIVE); BLOOD, URINE NEGATIVE (NEGATIVE); COLOR,URINE YELLOW (YELLOW); LEUKOCYTE ESTERASE ,URINE NEGATIVE (NEGATIVE); NITRITE, URINE NEGATIVE (NEGATIVE); PH,URINE 7.5 (5.0-9.0); UGLUCOSE NEGATIVE (NEGATIVE)
--- NOTE | 2020-03-29 13:14 | NUR ---
MORPHINE AND CIPRO ADMINISTERED
[2020-03-29] MEDS ORDERED: ACETAMINOPHEN 325 MG TAB PO PRN (13:20)
[2020-03-29] MEDS ORDERED: DOCUSATE SODIUM 100 MG GELCAP PO PRN (13:20)
[2020-03-29] MEDS ORDERED: HYDROcodone/APAP 7.5/325 MG 1 TAB PO PRN (13:20)
[2020-03-29] MEDS ORDERED: ONDANSETRON 4 MG/2 ML VIAL IM/IVP PRN (13:20)
--- NOTE | 2020-03-29 13:29 | NUR ---
ACCU CHECK 243
--- NOTE | 2020-03-29 13:31 | NUR ---
ATTEMPTED TO CALL PTS NEXT OF KIN, , BUSY LINE
--- NOTE | 2020-03-29 13:39 | NUR ---
PT NO LONGER GAURDING ABDOMEN, PT NO LONGER MOANING IN PAIN. NADR
--- NOTE | 2020-03-29 13:39 | NUR ---
COVID SWAB COLLECTED
--- NOTE | 2020-03-29 13:49 | NUR ---
CALLED PHARMACY FOR VALERIY
[2020-03-29 14:14] LABS: FREE T4 (FREE THYROXINE) 1.33 ng/dL (0.76-1.46); MAGNESIUM 1.7 mg/dL (1.8-2.4); PHOSPHORUS 3.3 mg/dL (2.5-4.9); THYROID STIMULATING HORMONE 2.53 uIU/mL (0.34-3.74)
[2020-03-29 14:20] LABS: PROTHROMBIN TIME 9.8 secs (10.8-13.4)
--- NOTE | 2020-03-29 14:20 | NUR ---
BARBIER TO YL
[2020-03-29] MEDS ORDERED: CALCIUM POLYCARBOPHIL 625 MG TAB PO SCH (14:32)
[2020-03-29 14:35] VITALS: BP 121/70
--- NOTE | 2020-03-29 14:35 | NUR ---
Patient will be admitted to care of MIHAI. Admited to TELE. Will go to room 1435. Belongings list completed. Report to PRICILA DAVIS. FLAGYL RUNNING AT 50 MLS/HR 25 ML LEFT TO ADMINISTER
--- NOTE | 2020-03-29 14:35 | NUR ---
RECEIVED BEDSIDE REPORT FROM ER NURSE, KETTY, FOR CONTINUITY OF CARE. PT. IS AWAKE, AAOX1, TRANSFERRED VIA GURNEY. PT. IS ON RA WITH SAO2 OF 100%, RESPIRATIONS EVEN AND UNLABORED. NO SIGNS OF DISTRESS NOTED. IV SITE ON THE RAC 20G WITH D5NS RUNNING AT 60ML/HR, IV SITE PATENT AND FLUSHES WELL. PT. IS AMBULATORY WITH DIRECTOR OF AUDIOLOGY. PT. IS INCONTINENT BOTH URINE AND BM. SR ON TELE MONITORING, HEART SOUNDS REGULAR S1&S2. FALL PRECAUTIONS IN PLACE. BED ALARM ON. CALL LIGHT WITHIN REACH. WILL CONTINUE TO MONITOR.
[2020-03-29] MEDS: DEXT 5% /NACL 0.9% 1,000 ML IV SCH (14:48)
[2020-03-29] MEDS ORDERED: LIDOCAINE VISCOUS 2% 20 ML UDC PO SCH ×2 (15:00→22:35)
[2020-03-29] MEDS ORDERED: DICYCLOMINE HCL LIQUID 10 MG/5 ML UDC PO SCH ×2 (15:00→17:00)
[2020-03-29] MEDS ORDERED: ALUMINUM HYD/MAG/SIMETHICONE 30 ML UDC PO SCH ×2 (15:00→22:35)
--- NOTE | 2020-03-29 15:10 | NUR ---
MRSA CULTURE TAKEN, ASSESSMENT DONE. V/S DONE AND IS WNL. PT. VERBALIZES ABDOMINAL PAIN, WILL MEDICATE. WILL CONTINUE TO MONITOR.
[2020-03-29] MEDS ORDERED: PSYLLIUM 12.2 GM/PKT PO SCH (15:35)
--- NOTE | 2020-03-29 16:20 | NUR ---
CALLED PT'S GRANDAUGHTER, RIA BRITTON, TO UPDATE ON PT'S CONDITION. PT'S FAMILY VERBALIZES UNDERSTANDING. REDIRECTED CALL TO DR. POLO FOR FURTHER QUESTIONS. WILL CONTINUE TO MONITOR.
--- NOTE | 2020-03-29 17:00 | NUR ---
PT'S GRAND DAUGHTER, RIA BRITTON, STARTER MECHANIC WITH PT. PT'S FAMILY GAVE PT. REASSURANCE ABOUT CONDITION, PT. VERBALIZES UNDERSTANDING. WILL CONTINUE TO MONITOR.
--- NOTE | 2020-03-29 17:05 | NUR ---
CALLED [facility] ABOUT PT'S FLU AND PNA VACCINE RECORD AND PREVIOUS DIET. SPOKE TO RYAN CARR. STATES THAT PT. REFUSED BOTH FLU AND PNA VACCINE, AND WAS PREVIOUSLY ON A MECHANICAL SOFT DIET. WILL CONTINUE TO MONITOR.
--- NOTE | 2020-03-29 18:27 | NUR ---
SPOKE TO DR. POLO ABOUT PT'S PERSISTENT ABDOMINAL PAIN AND POSSIBLE ACCUCHECK FOR PT'S PREDIABETIC CONDITION, NEW ORDERS FOR PAIN MEDICATION WILL BE PLACED AND ACCUCHECKS ACHS WILL BE PLACED. WILL CONTINUE TO MONITOR.
--- NOTE | 2020-03-29 19:10 | NUR ---
ENDORSED TO BUDGET ENGINEER RN, ANTONIETA, FOR CONTINUITY OF CARE.
--- NOTE | 2020-03-29 19:11 | NUR ---
RECEIVED REPORT FROM DAY SHIFT NURSE. PT IN BED RESTING WITH HOB ELEVATED. PT IS AWAKE WITH EPISODES OF CONFUSION. RESPIRATIONS ARE EVEN AND UNLABORED TO ROOM AIR. ABDOMEN IS SOFT AND NON-TENDER. SKIN IS WARM, DRY, AND INTACT. IV ACCESS ON RIGHT AC G 20 CLEAN AND INTACT. IVF INFUSING WELL. FLACC 0. NO S/SX OF DISTRESS AT THIS TIME. PLAN OF CARE DISCUSSED. REINFORCEMENT NEEDED. PT KEPT CALM AND COMFORTABLE. SAFETY MEASURES IN PLACE. WILL CONTINUE TO MONITOR.
[2020-03-29 20:00] VITALS: BP 131/57
--- NOTE | 2020-03-29 20:20 | NUR ---
VS TAKEN. PT IN BED RESTING WATCHING TV. RESPIRATIONS EVEN AND UNLABORED. NOT IN DISTRESS. FLACC 0. PT KEPT COMFORTABLE AND SAFE. WILL CONTINUE TO MONITOR.
--- NOTE | 2020-03-29 22:30 | NUR ---
ASSISTED ACTUARY IN CHANGING PT DIAPER. PT HAD SOFT BOWEL MOVEMENT. WILL CONTINUE TO MONITOR.
[2020-03-29] MEDS ORDERED: DICYCLOMINE 10 MG CAP PO SCH (22:35)
--- NOTE | 2020-03-29 22:47 | NUR ---
PT COMPLAINS OF ABDOMINAL PAIN. GRIMACING AND RESTLESSNESS NOTED. FLACC 5. MEDICATION GIVEN ORDERED. WILL CONTINUE TO MONITOR.
[2020-03-30] VITALS: BP 123/68
--- NOTE | 2020-03-30 00:20 | NUR ---
VITAL SIGNS STABLE. PT IN BED RESTING. NO COMPLAINS AT THIS TIME. PT NOT IN DISTRESS. PT KEPT COMFORTABLE. SAFETY MEASURES IN PLACE. CALL LIGHT WITHIN REACH. WILL CONTINUE TO MONITOR.
[2020-03-30] MEDS ORDERED: MORPHINE SULFATE 2 MG/ML SYR IVP SCH (02:05)
--- NOTE | 2020-03-30 02:20 | NUR ---
PT GETTING OUT OF BED. REMOVED IV ACCESS. COMPLAINING OF ABDOMINAL PAIN. MD AWARE. ORDER RECEIVED. WILL CONTINUE TO MONITOR.
--- NOTE | 2020-03-30 02:50 | NUR ---
IV ACCESS INSERTED AT LEFT AC G22. PAIN MEDICATION GIVEN ORDERED. PT CONFUSED. SAFETY MEASURES IN PLACE. WILL CONTINUE TO MONITOR.
[2020-03-30 04:08] VITALS: BP 124/53
[2020-03-30] MEDS: LORazepam 1 MG TAB PO PRN (04:34)
--- NOTE | 2020-03-30 04:34 | NUR ---
PT AGITATED. GETTING OUT OF BED AND GOING OUTSIDE ROOM. PRN ATIVAN GIVEN ORDERED. SAFETY MEASURES IN PLACE. WILL CONTINUE TO MONITOR.
[2020-03-30] MEDS: DEXT 5% /NACL 0.9% 1,000 ML IV SCH ×2 (05:57→22:37)
[2020-03-30 05:58] LABS: BASOPHILS % (AUTO) 0.2 % (0.0-2.0); EOSINOPHILS % (AUTO) 0.1 % (0.0-4.0); HEMATOCRIT 36.5 % (36-48); HEMOGLOBIN 12.4 g/dL (12.0-16.0); LYMPHOCYTES # (AUTO) 0.9 K/uL (2.5-16.5); LYMPHOCYTES % (AUTO) 6.8 % (20.5-51.1); MEAN CORPUSCULAR HEMOGLOBIN 35 pg (27-31); MEAN CORPUSCULAR HGB CONC 34 g/dL (33-37); MEAN CORPUSCULAR VOLUME 102.9 fL (80-94); MONOCYTES # (AUTO) 1.1 K/uL (0.8-1.0); MONOCYTES % (AUTO) 8.8 % (1.7-9.3); NEUTROPHILS # (AUTO) 10.8 K/uL (1.8-7.7); NEUTROPHILS % (AUTO) 84.1 % (42.2-75.2); PLATELET COUNT (AUTO) 260 K/uL (140-450); RED BLOOD CELL COUNT(AUTO) 3.55 MIL/uL (4.20-5.40); RED CELL DISTRIBUTION WIDTH 14.4 % (11.6-13.7); WHITE BLOOD COUNT (AUTO) 12.8 K/uL (4.8-10.8)
[2020-03-30 06:24] LABS: CARBON DIOXIDE 25.5 mmol/L (21-32); CHLORIDE 94 mmol/L (98-107); CREATININE 0.7 mg/dL (0.6-1.3); GLUCOSE 173 mg/dL (74-106); POTASSIUM 3.5 mmol/L (3.5-5.1); SODIUM SERUM 130 mmol/L (136-145); UREA NITROGEN, BLOOD 4 mg/dL (7-18)
--- NOTE | 2020-03-30 07:20 | NUR ---
ENDORSED TO DAY SHIFT NURSE FOR CONTINUITY OF CARE. PATIENT IN STABLE CONDITION.
--- NOTE | 2020-03-30 07:22 | NUR ---
RECEIVED REPORT FROM NIGHT NURSE PT IS SLEEPING AND STABLE CONDITION, IV SITES INTACT AND PATENT, SKIN INTACT ON ROOM AIR. SAFETY MEASURES IN PLACE AND CALL LIGHT WITHIN REACH. WILL CONTINUE TO MONITOR.
[2020-03-30 08:00] VITALS: BP 110/60
[2020-03-30 08:10] LABS: T4 (THYROXINE) 7.7 ug/dL (4.5-12.0)
[2020-03-30] MEDS ORDERED: CALCIUM POLYCARBOPHIL 625 MG TAB PO SCH (09:00)
[2020-03-30] MEDS ORDERED: POLYETHYLENE GLYCOL 17 GM/PKT PO SCH (09:00)
--- NOTE | 2020-03-30 09:00 | NUR ---
MEDICATIONS DUE GIVEN PT IS STABLE AND NO COMPLAINS OF PAIN.
--- NOTE | 2020-03-30 09:08 | NUR ---
PATIENT HAS BEEN SCREENED AND CATEGORIZED HIGH NUTRITION RISK. PATIENT WILL BE SEEN WITHIN 1-2 DAYS OF ADMISSION. 03/30/20-03/31/[address]
[2020-03-30] MEDS: FUROSEMIDE 20 MG TAB PO SCH (10:09)
[2020-03-30] MEDS: VALSARTAN 80 MG TAB PO SCH (10:10)
--- NOTE | 2020-03-30 11:40 | NUR ---
PT HAD A BOWEL MOVEMENT AT THIS TIME BUT UNABLE TO COLLECT SPECIMEN. WILL CONTINUE TO MONITOR.
[2020-03-30 12:00] VITALS: BP 118/66
[2020-03-30] MEDS: PIPERACILLIN/TAZOBACTAM 2.25 GM in DEXTROSE 5% 50 ML IV SCH ×2 (12:08→17:31)
[2020-03-30] MEDS ORDERED: PIPERACILLIN/TAZOBACTAM 3.375 GM in DEXTROSE 5% 50 ML IV SCH (13:00)
[2020-03-30] MEDS ORDERED: MAG SULF 2000 MG/WATER PREMIX 50 ML IV SCH (13:00)
--- NOTE | 2020-03-30 13:19 | NUR ---
03/30/20 RD INITIAL ASSESSMENT COMPLETED PLEASE REFER TO NUTRITION ASSESSMENT UNDER CARE ACTIVITY FOR ESTIMATED NUTRITIONAL NEEDS. 1. CONTINUE FULL LIQUID DIET MEDICALLY APPROPRIATE 2. RECOMMEND ENSURE TID 3. RECOMMEND CULTURELLE DAILY 4. IF/WHEN MEDICALLY STABLE CONSIDER ADVANCING DIET TO MECHANICAL SOFT 5. RD TO FOLLOW-UP 2-3 DAYS, HIGH RISK MAMADOU PUTNAM RD
--- NOTE | 2020-03-30 14:00 | NUR ---
MEDICATIONS DUE GIVEN PT IS SLEEPING AND NO DISTRESS NOTED, SAFETY MEASURES IN PLACE CALL LIGHT WITHIN REACH. WILL CONTINUE TO MONITOR
--- NOTE | 2020-03-30 15:00 | NUR ---
MADE ROUNDS AT THIS TIME UNABLE TO COLLECT SPECIMEN FOR TESTING.
[2020-03-30 16:00] VITALS: BP 115/65
--- NOTE | 2020-03-30 16:42 | NUR ---
DISCHARGE PLANNING: PATIENT IS 89 Y/O FEMALE FROM [facility], WHO WAS BIBA DUE TO INTRACTABLE ABDOMINAL PAIN. PAST MEDICAL HISTORY INCLUDE CHF, HTN, DYSPHAGIA, PRE DIABETES AND DEMENTIA. INITIAL DIAGNOSIS OF DIVERTICULITIS. CURRENT LABS INCLUDE WBC 12.8, H/H 12.4/36.5, NA/K 130/3.5, BUN/CREA 4/0.7, LACTIC ACID 2.2. COVID PENDING. STOOL OCCULT BLOOD POSITIVE. URINE CS NO GROWTH. BLOOD CS NO GROWTH AFTER 24 HOURS. CXR ON ADMISSION SHOWED NO ACUTE CARDIOPULMONARY PROCESS. CT OF ABD/PELVIS SHOWED DIVERTICULITIS. ON ZOSYN. GI CONSULT IN PLACE AND SEEN. DC PLAN BACK TO [facility] ONCE STABLE. Addendum: 03/31/20 at 1354 by Swati Valenzuela CM FOR PT EVAL TODAY. 2ND COVID TEST PENDING. FOR POSSIBLE DC BACK TO [facility] TOMORROW. UPDATED CLINICALS FAXED TO [facility]. Addendum: 04/01/20 at 0962 by Swati Valenzuela CM FRANCES WOODY [facility] MADE AWARE THE 2ND COVID TESTING IS STILL PENDING. SHE INFORMED ME THAT THEIR AUDITING SPECIALIST TOLD HER THAT THE FAMILY WANTS TO TAKE THE PATIENT HOME FROM THE HOSPITAL. REACHED OUT TO PATIENT'S DAUGHTER JEANIE BEE AT [phone], SHE STATED THAT SHE IS OK FOR THE PATIENT TO GO BACK TO [facility] TO FINISH THE ANTIBIOTICS AND WILL TAKE THE PATIENT HOME ONCE DONE. IMM LETTER DISCUSSED WELL, NO CONCERNS OR QUESTIONS ASKED AND VERY APPRECIATIVE OF THE CARE WE PROVIDED TO HER MOTHER. FRANCES WOODY [facility] MADE AWARE. Addendum: 04/01/20 at 1052 by Swati Valenzuela CM FOR COLONOSCOPY TODAY UNDER DR. FLEMING. Addendum: 04/02/20 at 1145 by Swati Valenzuela CM FOR DC BACK TO [facility] TODAY. CONTACTED FRANCES [facility], SHE STATED THEY ARE WORKING WITH THE ROOM CHANGES AND WILL LET US KNOW SOON ROOM IS AVAILABLE. Addendum: 04/02/20 at 1600 by Swati Valenzuela CM PER FRANCES WOODY [facility], SHE SPOKE TO DR. POLO AND DC PLAN WILL BE FOR TOMORROW. SHE STATED PATIENT WILL GO TO ROOM [address] UNDER DR[address] POLO. I ASKED HER IF THEY ARE ABLE TO HELP WITH THE TRANSPORT, SHE STATED SHE WILL CHECK WITH HER CONTOUR GRINDER AND WILL CALL ME BACK. DR. HUYNH CONFIRMED THAT DC WILL BE TOMORROW. Addendum: 04/03/20 at 0941 by Varsha Madrigal CM SET UP TRANSPORTATION THROUGH [facility]. PATIENT WILL BE PICKED UP BY 2:00 PM. AUTHORIZATION [id number]. NOTIFIED RYAN AND FRANCES FROM [facility]. Addendum: 04/03/20 at 1616 by Varsha Madrigal CM CHIROPRACTOR SOLE PRACTITIONER [facility]ARA NOTIFIED ME THAT PATIENT HAS NOT BEEN PICKED UP YET BY TRANSPORTATION SERVICE. I CONTACTED SHAWN AT [facility] TO CLARIFY WHAT WAS GOING ON. SHE SAID THAT THEY WERE WAITING ON [facility] FOR TRANSPORTATION. I CONTACTED THE DAUGHTER JEANIE BEE [phone]. SHE IS GOING TO ASSOCIATE PROFESSOR OF LIBRARY SCIENCE HER MOTHER UP AROUND 5:30. NOTIFED RYAN GILLESPIE.
--- NOTE | 2020-03-30 19:15 | NUR ---
ENDORSED PT TO NIGHT NURSE FOR CONTINUITY OF CARE, PT IS STABLE
--- NOTE | 2020-03-30 19:16 | NUR ---
RECEIVED REPORT FROM AM NURSE. PATIENT LYING DOWN IN BED SLEEPING, AROSUABLE BY VOICE. NO DISTRESS NOTED. FLACC 0, DENIES PAIN. RESPIRATIONS EVEN, UNLABORED, ON ROOM AIR. IV SITE INTACT, PATENT, AND INFUSING IVF PER MD ORDERS. SKIN COLOR APPROPRIATE TO ETHNICITY, WARM TO TOUCH. PER AM SHIFT, PATIENT HAS DIARRHEA. REVIEWED PLAN OF CARE WITH PATIENT. PATIENT VERBALIZED UNDERSTANDING. SAFETY MEASURES IN PLACE, CALL LIGHT WITHIN REACH. WILL CONTINUE TO MONITOR.
[2020-03-30 20:00] VITALS: BP 109/57
--- NOTE | 2020-03-30 23:01 | NUR ---
PATIENT LYING DOWN IN BED SLEEPING, AROUSABLE BY VOICE. NO DISTRESS NOTED. DENIES ANY PAIN. WILL CONTINUE TO MONITOR.
[2020-03-31] VITALS: BP 112/57
[2020-03-31] MEDS: PIPERACILLIN/TAZOBACTAM 2.25 GM in DEXTROSE 5% 50 ML IV SCH ×4 (00:06→18:19)
--- NOTE | 2020-03-31 00:11 | NUR ---
ASSISTED RESEARCH QUALITY ASSURANCE SPECIALIST IN CLEANING PATIENT. UNABLE TO COLLECT BM AT THIS TIME DUE TO CHECKS SOAKING IN DIARRHEA. CANNOT COLLECT. SCHEDULED MEDICATIONS DUE GIVEN. WILL CONTINUE TO MONITOR.
--- NOTE | 2020-03-31 03:10 | NUR ---
PATIENT LYING DOWN IN BED SLEEPING, AROUSABLE BY VOICE. NO DISTRESS NOTED. CONDITION UNCHANGED. WILL CONTINUE TO MONITOR
[2020-03-31 04:00] VITALS: BP 115/62
--- NOTE | 2020-03-31 05:09 | NUR ---
SCHEDULED MEDICATIONS DUE GIVEN. WILL CONTINUE TO MONITOR.
[2020-03-31 06:15] LABS: BASOPHILS % (AUTO) 0.4 % (0.0-2.0); EOSINOPHILS # (AUTO) 0.1 K/uL (0-0.4); EOSINOPHILS % (AUTO) 1.1 % (0.0-4.0); HEMATOCRIT 33.5 % (36-48); HEMOGLOBIN 11.6 g/dL (12.0-16.0); LYMPHOCYTES # (AUTO) 1.6 K/uL (2.5-16.5); LYMPHOCYTES % (AUTO) 21.3 % (20.5-51.1); MEAN CORPUSCULAR HEMOGLOBIN 35 pg (27-31); MEAN CORPUSCULAR HGB CONC 35 g/dL (33-37); MEAN CORPUSCULAR VOLUME 102.7 fL (80-94); MONOCYTES # (AUTO) 0.7 K/uL (0.8-1.0); MONOCYTES % (AUTO) 9.1 % (1.7-9.3); NEUTROPHILS % (AUTO) 68.1 % (42.2-75.2); PLATELET COUNT (AUTO) 245 K/uL (140-450); RED BLOOD CELL COUNT(AUTO) 3.26 MIL/uL (4.20-5.40); RED CELL DISTRIBUTION WIDTH 14.5 % (11.6-13.7); WHITE BLOOD COUNT (AUTO) 7.3 K/uL (4.8-10.8)
[2020-03-31 07:23] LABS: ANION GAP 12.1 (8-16); CARBON DIOXIDE 26.1 mmol/L (21-32); CHLORIDE 99 mmol/L (98-107); CREATININE 0.6 mg/dL (0.6-1.3); GLUCOSE 185 mg/dL (74-106); POTASSIUM 3.2 mmol/L (3.5-5.1); SODIUM SERUM 134 mmol/L (136-145); UREA NITROGEN, BLOOD 3 mg/dL (7-18)
[2020-03-31 07:27] LABS: MAGNESIUM 2.2 mg/dL (1.8-2.4); PHOSPHORUS 2.6 mg/dL (2.5-4.9)
--- NOTE | 2020-03-31 07:30 | NUR ---
GAVE REPORT TO AM SHIFT NURSE FOR CONTINUITY OF CARE. PATIENT IN STABLE CONDITION.
--- NOTE | 2020-03-31 07:31 | NUR ---
RECEIVED REPORT FROM ETL ANALYST NURSE. PT RESTING IN BED IN STABLE CONDITION. RESPIRATIONS EVEN AND UNLABORED. NO DISTRESS NOTED. SAFETY MEASURES IN PLACE, BED IN LOWEST POSITION, CALL LIGHT WITHIN REACH. WILL CONTINUE TO MONITOR.
[2020-03-31 08:00] VITALS: BP 147/76
--- NOTE | 2020-03-31 09:00 | NUR ---
SCHEDULED MEDICATIONS ADMINISTERED. PT TOLERATED WELL. WILL CONTINUE TO MONITOR.
[2020-03-31 09:06] LABS: FOLIC ACID 19.8 ng/mL (>3.0)
[2020-03-31] MEDS: FUROSEMIDE 20 MG TAB PO SCH (10:42)
[2020-03-31] MEDS: ASCORBIC ACID 500 MG TAB PO SCH (10:43)
[2020-03-31] MEDS: FERROUS SULFATE 325 MG TABEC PO SCH (10:43)
[2020-03-31] MEDS: VALSARTAN 80 MG TAB PO SCH (10:43)
--- NOTE | 2020-03-31 11:00 | NUR ---
IV RE-INSERTED DUE TO PT PULLING IT OUT. SHE NOW HAS RIGHT AC 20G. WILL NEED IV FOR ABX AND CONTRAST FOR CT. WILL CONTINUE TO MONITOR.
[2020-03-31 12:00] VITALS: BP 140/82
--- NOTE | 2020-03-31 12:00 | NUR ---
CONSENT OBTAINED BY PT DAUGHTER JEANIE FOR CT ABDOMEN AND PELVIS WITH CONTRAST
[2020-03-31] MEDS: MORPHINE SULFATE 2 MG/ML SYR IVP PRN ×3 (12:21→21:55)
[2020-03-31] MEDS ORDERED: POTASSIUM CHLORIDE 10 MEQ TABER PO SCH (12:30)
--- NOTE | 2020-03-31 13:06 | NUR ---
PT IS RESTING IN BED QUIETLY. NO SIGNS OF DISTRESS NOTED. WILL CONTINUE TO MONITOR
--- NOTE | 2020-03-31 15:10 | NUR ---
RECEIVED CALL FROM LAB, PT IS POSITIVE FOR MRSA OF NARES
[2020-03-31] MEDS: DEXT 5% /NACL 0.9% 1,000 ML IV SCH (15:17)
[2020-03-31 16:00] VITALS: BP 117/55
[2020-03-31] MEDS ORDERED: MAGNESIUM CITRATE 300 ML BTL PO SCH (18:00)
[2020-03-31] MEDS ORDERED: SENNA 8.6 MG TAB PO SCH (18:00)
[2020-03-31] MEDS ORDERED: BOWEL EVACUANT DRINK 4,000 ML PDS PO SCH (18:00)
[2020-03-31] MEDS ORDERED: LACTULOSE 20 GM/30 ML UDC PO SCH (18:00)
--- NOTE | 2020-03-31 19:17 | NUR ---
ENDORSED PATIENT IN STABLE CONDITION TO SOFTBALL UMPIRE NURSE FOR CONTINUITY OF CARE.
--- NOTE | 2020-03-31 19:20 | NUR ---
RECEIVED PT AAOX 1 TO 2 , NID , C/O ABDL . PAIN - FOR COLONOSCOPY CLARIBEL. - PER AM NURSE PT FOR C DIFF - STILL FOR STOOL COLLECTION . RA , O2 AST WNL FALL RISK - BED ALARM ON - ALL SAFETY MEASURES IN PLACE . IV SITE INTACT AND PATENT . PALN OF CARE DISCUSSED BUT POOR UNDERSTANDING DUE TO MENTAL STATUS . WITH RECTAL; TUBE . WILL CONT. TO MONITOR.
[2020-03-31 20:00] VITALS: BP 130/80
[2020-03-31] MEDS: LACTULOSE 20 GM/30 ML UDC PO SCH (21:52)
[2020-04-01] VITALS: BP 105/42
--- NOTE | 2020-04-01 | NUR ---
RECTAL TUBE - REMOVED BY THE PATIENT - WILL RE INSERTED NEW ONE . WILL CONT. TO MONITOR . MAINTAIN NPO .
[2020-04-01] MEDS: PIPERACILLIN/TAZOBACTAM 2.25 GM in DEXTROSE 5% 50 ML IV SCH ×4 (01:00→18:03)
--- NOTE | 2020-04-01 01:30 | NUR ---
NEW RECTAL TUBE RE INSERTED - COLLECTED STOOL SPECIMEN - FOR C DIFF
--- NOTE | 2020-04-01 01:35 | NUR ---
DR CAVANAUGH TOLD NO NEED TO SEND THE STOOL FOR C DIFF - DUE TO PT HAD LAXATIVES .NEGRO GROVE
[2020-04-01 04:00] VITALS: BP 113/69
--- NOTE | 2020-04-01 04:10 | NUR ---
MORPHINE 2MG/IV GIVEN ORDERED - WILL CONT. TO MONITOR.
[2020-04-01 05:50] LABS: BASOPHILS % (AUTO) 0.9 % (0.0-2.0); EOSINOPHILS # (AUTO) 0.1 K/uL (0-0.4); EOSINOPHILS % (AUTO) 2.2 % (0.0-4.0); HEMOGLOBIN 12.3 g/dL (12.0-16.0); LYMPHOCYTES # (AUTO) 0.9 K/uL (2.5-16.5); LYMPHOCYTES % (AUTO) 18.6 % (20.5-51.1); MEAN CORPUSCULAR HEMOGLOBIN 35 pg (27-31); MEAN CORPUSCULAR HGB CONC 34 g/dL (33-37); MEAN CORPUSCULAR VOLUME 103.5 fL (80-94); MONOCYTES # (AUTO) 0.5 K/uL (0.8-1.0); NEUTROPHILS # (AUTO) 3.2 K/uL (1.8-7.7); NEUTROPHILS % (AUTO) 68.3 % (42.2-75.2); PLATELET COUNT (AUTO) 275 K/uL (140-450); RED BLOOD CELL COUNT(AUTO) 3.48 MIL/uL (4.20-5.40); RED CELL DISTRIBUTION WIDTH 14.7 % (11.6-13.7); WHITE BLOOD COUNT (AUTO) 4.6 K/uL (4.8-10.8)
[2020-04-01] MEDS ORDERED: POTASSIUM CHLORIDE 10 MEQ TABER PO ONE (06:20)
[2020-04-01 06:31] LABS: ANION GAP 14.3 (8-16); CARBON DIOXIDE 25.1 mmol/L (21-32); CHLORIDE 103 mmol/L (98-107); CREATININE 0.7 mg/dL (0.6-1.3); GLUCOSE 187 mg/dL (74-106); POTASSIUM 3.4 mmol/L (3.5-5.1); SODIUM SERUM 139 mmol/L (136-145); UREA NITROGEN, BLOOD 3 mg/dL (7-18)
[2020-04-01 06:33] LABS: MAGNESIUM 2.2 mg/dL (1.8-2.4); PHOSPHORUS 2.5 mg/dL (2.5-4.9)
--- NOTE | 2020-04-01 06:35 | NUR ---
CONT. TO GIVE GOLYTELY ORDERED BY DR. MICHAELS .-CONT. TO MONITOR.
--- NOTE | 2020-04-01 07:25 | NUR ---
RECEIVED PATIENT FROM NIGHT NURSE. PATIENT IS AWAKE AND ALERT X4. RESP EVEN AND UNLABORED ON ROOM AIR. RIGHT AC 20 INTACT AND PATENT. FACIAL GRIMACE NOTED, PATIENT C/O PAIN TO ABDOMEN. PLAN OF CARE DISCUSSED, PATIENT VERBALIZED UNDERSTANDING. BED IN LOW POSITION, CALL LIGHT WITHIN REACH. WILL CONTINUE WITH CARE.
[2020-04-01 08:00] VITALS: BP 159/106
[2020-04-01] MEDS ORDERED: POTASSIUM CHLORIDE 40 MEQ, LIDOCAINE MPF 1% 25 MG in NACL 0.9% 250 ML IV SCH (08:00)
--- NOTE | 2020-04-01 08:00 | NUR ---
SPOKE TO DR MICHAELS ABOUT COLONOSCOPY. PROCEDURE WILL PROCEED. OBTAIN CONSENT NEEDED. CALLED DAUGHTER AND LEFT MESSAGE. WILL FOLLOW UP.
[2020-04-01] MEDS: MORPHINE SULFATE 2 MG/ML SYR IVP PRN ×2 (08:02→08:05)
[2020-04-01] MEDS: LACTULOSE 20 GM/30 ML UDC PO SCH (08:44)
[2020-04-01] MEDS: FERROUS SULFATE 325 MG TABEC PO SCH (08:45)
[2020-04-01] MEDS: FUROSEMIDE 20 MG TAB PO SCH (08:45)
[2020-04-01] MEDS: SENNA 8.6 MG TAB PO SCH ×3 (08:46→18:01)
[2020-04-01] MEDS: VALSARTAN 80 MG TAB PO SCH (08:47)
[2020-04-01] MEDS: ASCORBIC ACID 500 MG TAB PO SCH (08:47)
[2020-04-01] MEDS: DEXT 5% /NACL 0.9% 1,000 ML IV SCH (09:00)
[2020-04-01] MEDS: LORazepam 1 MG TAB PO PRN (09:23)
--- NOTE | 2020-04-01 09:30 | NUR ---
MORNING ROUTINE MEDICATIONS GIVEN. PATIENT WAS AGITATED, ATIVAN GIVEN PER ORDER. BP 159/106 HR 68 98% ON ROOM AIR. PATIENT TOLERATED MEDICATIONS WELL BY MOUTH. CALL LIGHT WITHIN REACH. WILL CONTINUE TO MONITOR.
--- NOTE | 2020-04-01 10:45 | NUR ---
SPOKE TO ABOUT COLONOSCOPY AND OBTAINED CONSENT OVER THE PHONE. VERIFIED WITH ANOTHER RN. CONTACT # [phone] MARILY LINARES. Addendum: 04/01/20 at 1211 by Addie Pan RN MARILY LINARES IS PATIENT'S SON.
[2020-04-01] MEDS ORDERED: MIDAZOLAM 2 MG/2 ML VIAL ONE ×2 (11:41)
[2020-04-01] MEDS ORDERED: fentaNYL 0.05 MG/ML VIAL ONE (11:41)
--- NOTE | 2020-04-01 11:50 | NUR ---
PATIENT LEFT TO GI FOR PROCEDURE. PATIENT LEFT IN STABLE CONDITION.
[2020-04-01 12:00] VITALS: BP 128/72
[2020-04-01] MEDS ORDERED: fentaNYL 0.05 MG/ML VIAL IVP ONE (12:25)
[2020-04-01] MEDS ORDERED: MIDAZOLAM 2 MG/2 ML VIAL IVP ONE (12:25)
--- NOTE | 2020-04-01 12:30 | NUR ---
PATIENT BACK FROM OR PROCEDURE. PATIENT IN STABLE CONDITION. RESP EVEN AND UNLABORED. 116/78 67 16 94% RA. DENIES OF PAIN. NO DISTRESS NOTED. WILL CONTINUE TO MONITOR
--- NOTE | 2020-04-01 12:45 | NUR ---
IV DISLODGED. NO IV ACCESS AT THIS TIME.
[2020-04-01] MEDS ORDERED: DICYCLOMINE HCL LIQUID 10 MG/5 ML UDC PO SCH (13:00)
[2020-04-01] MEDS ORDERED: DICYCLOMINE HCL LIQUID 10 MG/5 ML UDC PO PRN (14:05)
--- NOTE | 2020-04-01 15:20 | NUR ---
IV STARTED TO LEFT FOREARM 22. PATENT. SL
[2020-04-01 16:00] VITALS: BP 152/72
[2020-04-01] MEDS: POTASSIUM CHLORIDE 10 MEQ TABER PO PRN (18:03)
--- NOTE | 2020-04-01 18:30 | NUR ---
KDUR GIVEN PO PRN TO COVER FOR POTASSIUM 3.4 PER PARAMETER. PATIENT C/O SEVERE PAIN TO IV SITE WITH KRIDER. DR MELANI FLORES AND ELEAZAR TOLBERT KDUR.
--- NOTE | 2020-04-01 19:10 | NUR ---
BEDSIDE REPORT WAS RECEIVED FROM DAY SHIFT NURSE. PLAN OF CARE WAS DISCUSSED. PT IS AWAKE AND ALERT, A&O X 4, LAYING IN SEMI FOWLERS POSITION. PT'S IV IS PATENT AND INTACT RUNNING D5NS AT 40 ML PER HOUR PER ORDER. SKIN IS WARM AND DRY. PT HAS NO COMPLAINTS OF ABD PAIN. BED IS IN LOWEST POSITION AND CALL LIGHT IS WITHIN REACH. WILL CONTINUE TO MONITOR.
--- NOTE | 2020-04-01 19:10 | NUR ---
ENDORSED PATIENT TO NIGHT NURSE. PATIENT IN STABLE CONDITION.
[2020-04-01 20:00] VITALS: BP 131/57
--- NOTE | 2020-04-01 21:00 | NUR ---
PT IS AWAKE AND ALERT X 3. ON TELE MONITORING SINUS RHYTHM. NO RESPIRATORY DISTRESS ON ROOM AIR. PT IS REPOSITIONED AND WE WILL CONTINUE TO MONITOR.
[2020-04-02] VITALS: BP 142/66
--- NOTE | 2020-04-02 | NUR ---
PT IS SLEEPING. PT IS STABLE AND NO DISTRESS NOTED. PT IS SINUS RHYTHM ON TELE MONITORING. WE WILL CONTINUE MONITORING. COVID 19 TEST NUMBER TWO IS NEGATIVE.
--- NOTE | 2020-04-02 02:00 | NUR ---
PT IS SLEEPING. A&O X1 WHEN REPOSITIONING. RESPIRATIONS EVEN AND UNLABORED. PT IS IN STABLE CONDITION. WILL CONTINUE TO MONITOR.
[2020-04-02] MEDS: DEXT 5% /NACL 0.9% 1,000 ML IV SCH ×2 (02:40→07:26)
[2020-04-02 04:00] VITALS: BP 144/72
--- NOTE | 2020-04-02 04:15 | NUR ---
PT HAD A BOWEL MOVEMENT. SOILED LINENS WERE CHANGED AND PT WAS REPOSITIONED. PT IS IN STABLE CONDITION.
[2020-04-02] MEDS: PIPERACILLIN/TAZOBACTAM 2.25 GM in DEXTROSE 5% 50 ML IV SCH ×5 (05:25→18:59)
[2020-04-02 05:28] LABS: BASOPHILS % (AUTO) 0.8 % (0.0-2.0); EOSINOPHILS # (AUTO) 0.2 K/uL (0-0.4); EOSINOPHILS % (AUTO) 4.7 % (0.0-4.0); HEMATOCRIT 35.9 % (36-48); HEMOGLOBIN 12.2 g/dL (12.0-16.0); LYMPHOCYTES # (AUTO) 1.5 K/uL (2.5-16.5); LYMPHOCYTES % (AUTO) 35.9 % (20.5-51.1); MEAN CORPUSCULAR HEMOGLOBIN 35 pg (27-31); MEAN CORPUSCULAR HGB CONC 34 g/dL (33-37); MEAN CORPUSCULAR VOLUME 103.8 fL (80-94); MONOCYTES # (AUTO) 0.4 K/uL (0.8-1.0); MONOCYTES % (AUTO) 10.5 % (1.7-9.3); NEUTROPHILS % (AUTO) 48.1 % (42.2-75.2); PLATELET COUNT (AUTO) 286 K/uL (140-450); RED BLOOD CELL COUNT(AUTO) 3.46 MIL/uL (4.20-5.40); RED CELL DISTRIBUTION WIDTH 14.6 % (11.6-13.7); WHITE BLOOD COUNT (AUTO) 4.2 K/uL (4.8-10.8)
[2020-04-02 05:44] LABS: ANION GAP 11.1 (8-16); CARBON DIOXIDE 27.2 mmol/L (21-32); CHLORIDE 106 mmol/L (98-107); CREATININE 0.7 mg/dL (0.6-1.3); GLUCOSE 124 mg/dL (74-106); POTASSIUM 4.3 mmol/L (3.5-5.1); SODIUM SERUM 140 mmol/L (136-145); UREA NITROGEN, BLOOD 2 mg/dL (7-18)
[2020-04-02 05:47] LABS: MAGNESIUM 1.8 mg/dL (1.8-2.4); PHOSPHORUS 3.4 mg/dL (2.5-4.9)
--- NOTE | 2020-04-02 06:00 | NUR ---
PT IS AWAKE AND ALERT. A&O X 1 AND LAYING IN SEMI FOWLERS POSITION. PT HAD A BOWEL MOVEMENT AND SOILED LINENS WERE CHANGED. NO SOB OF BREATH AND RESPIRATIONS ARE EVEN AND UNLABORED. TELE MONITORING SHOWS SINUS TACHYCARDIA. WILL CONTINUE MONITORING
--- NOTE | 2020-04-02 06:30 | NUR ---
A NEW IV IS INSERTED IN THE RIGHT AC NUMBER 22. PT IS QUIET AND SLEEPING. WILL BE ENDORSED TO THE DAY SHIFT FOR CONTINUITY OF CARE. UNABLE TO TAKE STOOL SAMPLE. PT IS STABLE.
--- NOTE | 2020-04-02 07:20 | NUR ---
RECEIVED BEDSIDE REPORT FROM TRANSFERRER NURSE, FOR CONTINUITY OF CARE. PT IS A&OX3-4, BENGALI SPEAKING. RESPIRATIONS ARE EVEN AND UNLABORED, BREATHING TO RA. SPO2: 100%. SKIN COLOR APPROPRIATE FOR ETHNICITY. RAC 22G IV IS PATENT AND INTACT, RUNNING ORDERED. REVIEWED PLAN OF CARE WITH PT, PT TO BE TRANSFERRED BACK TO [facility] TODAY. SAFETY MEASURES IN PLACE; CALL LIGHT WITHIN REACH, BED IN LOW POSITION, SIGNS POSTED. TELE MONITOR ATTACHED. WILL CONTINUE TO MONITOR.
[2020-04-02 08:00] VITALS: BP 103/52
[2020-04-02] MEDS ORDERED: HYOS-91 PO (09:28)
[2020-04-02] MEDS ORDERED: POLY17PD46 PO (09:28)
[2020-04-02] MEDS ORDERED: DICY10SY PO (09:28)
[2020-04-02] MEDS: ASCORBIC ACID 500 MG TAB PO SCH (09:40)
[2020-04-02] MEDS: POLYETHYLENE GLYCOL 17 GM/PKT PO SCH (09:56)
[2020-04-02] MEDS: VALSARTAN 80 MG TAB PO SCH (09:59)
[2020-04-02] MEDS: FERROUS SULFATE 325 MG TABEC PO SCH (10:00)
[2020-04-02] MEDS: FUROSEMIDE 20 MG TAB PO SCH (10:00)
[2020-04-02] MEDS ORDERED: ZOS2.25PM IV (10:01)
--- NOTE | 2020-04-02 10:09 | NUR ---
SCHEDULED MEDICATIONS GIVEN. MEDICATION EDUCATION PROVIDED. PT TOLERATED PO MEDS WELL. BP: 156/76, PULSE: 72. NO ACUTE DISTRESS NOTED. TELE MONITOR ATTACHED. SAFETY MEASURES IN PLACE. WILL CONTINUE TO MONITOR.
[2020-04-02] MEDS: HYOSCYAMINE 0.125 MG TAB PO PRN ×2 (10:19→20:06)
--- NOTE | 2020-04-02 10:20 | NUR ---
PT COMPLAINS OF ABDOMINAL PAIN, PRN BENTYL AND LEVSIN ADMINISTERED. WILL CONTINUE TO MONITOR.
--- NOTE | 2020-04-02 11:25 | NUR ---
SPOKE WITH PT'S DAUGHTER, JEANIE, AND PROVIDED HER WITH AN UPDATE ON THE PT'S STATUS, AND INFORMED HER OF PT'S TRANSFER BACK TO [facility] TODAY. JEANIE WOULD LIKE TO SPEAK WITH PT. WILL CALL HER BACK AT: [phone].
[2020-04-02 12:00] VITALS: BP 123/62
--- NOTE | 2020-04-02 13:05 | NUR ---
ATTEMPTED TO CALL PT'S DAUGHTER, JEANIE X4; UNABLE TO REACH. CALLED PT'S OTHER DAUGHTER, MARILY. MARILY IS SPEAKING WITH THE PT.
[2020-04-02 16:00] VITALS: BP 127/66
[2020-04-02] MEDS ORDERED: DICYCLOMINE HCL LIQUID 10 MG/5 ML UDC PO SCH (18:00)
--- NOTE | 2020-04-02 18:21 | NUR ---
PT CONTINUES TO COMPLAINS OF ABD DISCOMFORT, ORDERED BENTYL ADMINISTERED. PT HAS NO IV ACCESS SCHEDULED ZOSYN NOT YET GIVEN. DR MICHAELS AWARE. WILL ATTEMPT IV ACCESS.
--- NOTE | 2020-04-02 19:04 | NUR ---
NEW IV SITE ESTABLISHED ON RT ANKLE. IV YANG PINEDA, AND RUNNING PER ORDERS.
--- NOTE | 2020-04-02 19:04 | NUR ---
RECEIVED PT AAOX 1 TO 2 - HX DEMENTIA . NID - O2 SAT WNL . C/O ABDL PAIN - WILL MEDICATE - ON SL - INTACT AND PATENT . ON TELE MONITOR . SAFETY MEASURES IN PLACE - BED ALARM ON . PLAN OF CARE DISCUSSED BUT POOR UNDERSTANDING DUE TO MENTAL STATUS - NEEDS REINFORCEMENT . WILL CONT. TO MONITOR.
[2020-04-02 20:00] VITALS: BP 117/67
--- NOTE | 2020-04-02 22:00 | NUR ---
MADE ROUNDS . C/O ABDL PAIN - JUST MEDICATED - WILL CONT . TO MONITOR .
[2020-04-03] VITALS: BP 116/69
--- NOTE | 2020-04-03 | NUR ---
MADE ROUNDS . RESTING ON BED COMFORTABLY - I FOUND IV CANNULLA ON BED - IV CANNULLA - INTACT - MIN. BLEEDING ON IV SITE . - WILL REINSERT IN CANNULLA
[2020-04-03] MEDS: PIPERACILLIN/TAZOBACTAM 2.25 GM in DEXTROSE 5% 50 ML IV SCH ×4 (00:30→18:00)
--- NOTE | 2020-04-03 00:30 | NUR ---
IV DUSTYULLA - REINSERTED ON L FOOT - PROCEDURE TOLERTAED WELL . WILL CONT. TO MONITOR .
--- NOTE | 2020-04-03 02:00 | NUR ---
MADE ROUNDS , PT HAS BM - SMALL AMOUNT - WATERY - BP WNL - WILL MON. TO MONITOR,
--- NOTE | 2020-04-03 03:00 | NUR ---
PT STILL AWAKE , KEEPS UP AND DOWN ON BED AT THIS TIME - SEROQUEL / TAB - HALF TAB . TO BE GIVEN ORDERED .
[2020-04-03] MEDS ORDERED: QUEtiapine FUMARATE 25 MG TAB PO ONE (03:35)
[2020-04-03] MEDS ORDERED: CRUSHER, PILL MC ONE (03:52)
[2020-04-03] MEDS: HYOSCYAMINE 0.125 MG TAB PO PRN ×2 (03:58→10:34)
[2020-04-03 04:00] VITALS: BP 117/67
--- NOTE | 2020-04-03 04:00 | NUR ---
SLEEPY - HAD BM SMALL AMOUT - WATERY - V/S WNL - WILL CONT. TO MONITOR.
--- NOTE | 2020-04-03 05:30 | NUR ---
MADE ROUNDS . NO S/SX OF ACUTE DISTRESS NOTED - ON TELE MONITOR - IV CANULLA FOUND ON BED - IV CANNULLA - INTACT, W/ MIN. BLEEDING ON IV SITE - WILL RE INSERT THE IV CANULLA .
--- NOTE | 2020-04-03 06:00 | NUR ---
IV CANULLA REINSERTED ON L FOOT - G24 - PROCEDURE TOLERATED WELL . WILL CONT . TO MONITOR .
[2020-04-03 06:36] LABS: BASOPHILS # (AUTO) 0.1 K/uL (0.00-0.22); EOSINOPHILS # (AUTO) 0.2 K/uL (0-0.4); EOSINOPHILS % (AUTO) 5.5 % (0.0-4.0); HEMATOCRIT 34.7 % (36-48); LYMPHOCYTES # (AUTO) 0.8 K/uL (2.5-16.5); LYMPHOCYTES % (AUTO) 22.5 % (20.5-51.1); MEAN CORPUSCULAR HEMOGLOBIN 35 pg (27-31); MEAN CORPUSCULAR HGB CONC 35 g/dL (33-37); MEAN CORPUSCULAR VOLUME 101.3 fL (80-94); MONOCYTES # (AUTO) 0.5 K/uL (0.8-1.0); MONOCYTES % (AUTO) 13.9 % (1.7-9.3); NEUTROPHILS # (AUTO) 1.9 K/uL (1.8-7.7); NEUTROPHILS % (AUTO) 56.1 % (42.2-75.2); PLATELET COUNT (AUTO) 256 K/uL (140-450); RED BLOOD CELL COUNT(AUTO) 3.42 MIL/uL (4.20-5.40); RED CELL DISTRIBUTION WIDTH 14.2 % (11.6-13.7); WHITE BLOOD COUNT (AUTO) 3.4 K/uL (4.8-10.8)
[2020-04-03 06:54] LABS: ANION GAP 15.5 (8-16); CARBON DIOXIDE 25.8 mmol/L (21-32); CHLORIDE 97 mmol/L (98-107); CREATININE 0.7 mg/dL (0.6-1.3); GLUCOSE 161 mg/dL (74-106); POTASSIUM 3.3 mmol/L (3.5-5.1); SODIUM SERUM 135 mmol/L (136-145); UREA NITROGEN, BLOOD 2 mg/dL (7-18)
[2020-04-03 07:12] LABS: MAGNESIUM 1.5 mg/dL (1.8-2.4); PHOSPHORUS 3.9 mg/dL (2.5-4.9)
--- NOTE | 2020-04-03 07:49 | NUR ---
RECEIVED BEDSIDE REPORT FROM DIRECTOR DATA PROCESSING NURSE, FOR CONTINUITY OF CARE. PT IS A&OX3-4, SWEDISH SPEAKING. PT IS ASLEEP IN BED, AROUSABLE TO VOICE. RESPIRATIONS ARE EVEN AND UNLABORED, BREATHING TO RA. SKIN COLOR APPROPRIATE FOR ETHNICITY. LEFT FOOT 24G IV IS PATENT AND INTACT, SALINE LOCK. REVIEWED PLAN OF CARE WITH PT, PT TO BE TRANSFERRED BACK TO [facility] WHEN A BED BECOMES AVAILABLE. SAFETY MEASURES IN PLACE; CALL LIGHT WITHIN REACH, BED IN LOW POSITION, SIGNS POSTED. TELE MONITOR ATTACHED. WILL CONTINUE TO MONITOR.
--- NOTE | 2020-04-03 07:49 | NUR ---
ENDORSED TO AM SHIFT - PT -STABLE .
[2020-04-03 08:00] VITALS: BP 122/70
[2020-04-03] MEDS: FERROUS SULFATE 325 MG TABEC PO SCH (08:00)
--- NOTE | 2020-04-03 08:55 | NUR ---
PT IS TO BE DISCHARGED TODAY; TRANSFER TO [facility], BED 33 A. TRANSPORTATION TO BE ARRANGED FOR 1100.
[2020-04-03] MEDS: POLYETHYLENE GLYCOL 17 GM/PKT PO SCH (09:00)
--- NOTE | 2020-04-03 09:45 | NUR ---
TRANSPORTATION TIME CHANGED TO 1400 PICKUP.
[2020-04-03] MEDS: POTASSIUM CHLORIDE 10 MEQ TABER PO PRN (10:34)
[2020-04-03] MEDS: ASCORBIC ACID 500 MG TAB PO SCH (10:35)
[2020-04-03] MEDS: VALSARTAN 80 MG TAB PO SCH (10:36)
[2020-04-03] MEDS: FUROSEMIDE 20 MG TAB PO SCH (10:36)
--- NOTE | 2020-04-03 10:40 | NUR ---
SCHEDULED MEDICATIONS GIVEN. PT TOLERATED PO MEDS WELL. PRN LEVSIN MEDICATION GIVEN FOR PT COMPLAINTS OF PAIN. PRN POTASSIUM GIVEN FOR POTASSIUM LEVEL: 3.3. BP CHECKED; BP: 122/70, PULSE: 74. MEDICATION EDUCATION PROVIDED. NO DISTRESS NOTED. TELE MONITOR ATTACHED. WILL CONTINUE TO MONITOR.
--- NOTE | 2020-04-03 11:31 | NUR ---
SPOKE WITH PT'S DAUGHTER, JEANIE. JEANIE IS AWARE OF PT'S TRANSFER BACK TO [facility] AT 2:00 PM TODAY. JEANIE ALSO SPOKE WITH THE PT ON THE PHONE. WILL CALL TO GIVE REPORT TO [facility].
[2020-04-03 12:00] VITALS: BP 121/68
[2020-04-03 12:32] VITALS: BP 122/70
--- NOTE | 2020-04-03 12:57 | NUR ---
CALLED MARIETTA FROM [facility] AND INFORMED THAT PT REMOVED IV, AND MISSED AFTERNOON DOSE OF IVPB ZOSYN.
[2020-04-03 16:00] VITALS: BP 122/68
--- NOTE | 2020-04-03 18:45 | NUR ---
PT'S DISCHARGE PAPERWORK SIGNED. DISCHARGE PACKET PRINTED FOR [facility]. TRANSPORTATION FOR TRANSFER CANCELLED. PT'S DAUGHTER JEANIE ARRIVED IN PRIVATE VEHICLE TO TAKE THE PT TO [facility]. GUEST EXPERIENCE REPRESENTATIVE AND ARM BANDS REMOVED. PT'S BELONGINGS IN HER POSSESSION. PT ESCORTED OFF UNIT VIA WHEELCHAIR. DISCHARGE PAPERWORK AND PT'S BELONGINGS GIVEN TO JAENIE. PT IN STABLE CONDITION.
[2020-04-03] MEDS ORDERED: PROPRANOLOL 20 MG TAB ONE (23:37)
[2020-04-03] MEDS ORDERED: BACLOFEN 10 MG TAB ONE (23:38)
== END 2020-04-03 18:50 | DRG 872 ==
LOC: MED 11:22 → EEVIPCON 13:23 → MMU 13:23 → MTU 04-03 10:50
PROVIDERS: ADMIT General Practice; ATTEND General Practice
PROC: 0DBL8ZX Excision of Transverse Colon, Via Natural or Artificial Opening Endoscopic, Diagnostic (ICD-10-PCS; 2020-04-01)
PROC: 0DBF8ZX Excision of Right Large Intestine, Via Natural or Artificial Opening Endoscopic, Diagnostic (ICD-10-PCS; 2020-04-01)
PROC: 0DBG8ZX Excision of Left Large Intestine, Via Natural or Artificial Opening Endoscopic, Diagnostic (ICD-10-PCS; principal; 2020-04-01 12:00)
DX: A41.9 Sepsis, unspecified organism (principal); E87.1 Hypo-osmolality and hyponatremia; K57.32 Diverticulitis of large intestine without perforation or abscess without bleeding; I11.0 Hypertensive heart disease with heart failure; F03.90 Unspecified dementia, unspecified severity, without behavioral disturbance, psychotic disturbance, mood disturbance, and anxiety; K52.9 Noninfective gastroenteritis and colitis, unspecified; Z20.828 Contact with and (suspected) exposure to other viral communicable diseases; E11.65 Type 2 diabetes mellitus with hyperglycemia; Z66 Do not resuscitate; R65.20 Severe sepsis without septic shock; I50.9 Heart failure, unspecified; D75.89 Other specified diseases of blood and blood-forming organs; E87.8 Other disorders of electrolyte and fluid balance, not elsewhere classified; E83.42 Hypomagnesemia; E87.6 Hypokalemia; F43.9 Reaction to severe stress, unspecified; D16.01 Benign neoplasm of scapula and long bones of right upper limb; Z88.8 Allergy status to other drugs, medicaments and biological substances; Z79.899 Other long term (current) drug therapy
CPT/HCPCS: 36415; 71045; 80048; 80053; 81003; 82150; 82272; 82607; 82728; 82746; 82948; 83036; 83540; 83605; 83690; 83735; 83880; 84100; 84436; 84439; 84443; 84479; 84484; 85025; 85045; 85610; 85730; 87040; 87081; 87086; 88305; 93005; 96365; 96372; 96375; 97110; 97112; 97116; 97161-GP; 97530; 99291; J1815; J2001; J2250; J2270; J2543; J3010; J3475; J3480; J3490; J7030; J7042; J7060; Q0092; Q9967; U0003-CS

== ENCOUNTER 2020-05-04 11:45 | Emergency (ER) | payer OTHER, SELFPAY ==
[~2020-05-04] VITALS: Ht 154.9 cm; Wt 48.5 kg
[~2020-05-04 11:45] MED LIST changes: +DICY10SY PO; +HYOS-91 PO; -MULT-153 PO; +MULT-2112 PO; +POLY17PD46 PO; +ZOS2.25PM IV
--- NOTE | 2020-05-04 11:45 | NUR ---
ESTEE MALDONADO ALS TO ER BED 08
[2020-05-04 11:58] VITALS: BP 155/78
--- NOTE | 2020-05-04 12:06 | NUR ---
89 Y/O FEMALE BIBA ALS FROM [facility] FOR ABD PAIN X 24 HRS PER EMS. [facility] STATES FACILITY SAID PT C/O PAIN STARTING YESTERDAY WHILE POINTING AT ABD. PER EMS PT HAS NOT VOMITTED, + FOR CDIFF. PT PRESENTS ON 3L NC. RR EVEN AND UNLABORED. ABD NONTENDER TO PALP. VSS. PLACED ON TRAFFIC OPERATIONS ENGINEER, PULSE OX, AND BP CUFF. MEDHX: HTN, DM, DEMENTIA
--- NOTE | 2020-05-04 12:13 | NUR ---
Pt straight cathed for urine collection, 700cc of urine output
--- NOTE | 2020-05-04 12:28 | NUR ---
Pt to ct via [facility]
[2020-05-04 12:33] LABS: BASOPHILS % (AUTO) 1.1 % (0.0-2.0); EOSINOPHILS % (AUTO) 0.2 % (0.0-4.0); HEMATOCRIT 36.7 % (36-48); HEMOGLOBIN 12.6 g/dL (12.0-16.0); LYMPHOCYTES # (AUTO) 0.9 K/uL (2.5-16.5); LYMPHOCYTES % (AUTO) 28.6 % (20.5-51.1); MEAN CORPUSCULAR HEMOGLOBIN 35 pg (27-31); MEAN CORPUSCULAR HGB CONC 34 g/dL (33-37); MEAN CORPUSCULAR VOLUME 101.2 fL (80-94); MONOCYTES # (AUTO) 0.5 K/uL (0.8-1.0); NEUTROPHILS # (AUTO) 1.8 K/uL (1.8-7.7); NEUTROPHILS % (AUTO) 55.1 % (42.2-75.2); PLATELET COUNT (AUTO) 198 K/uL (140-450); RED BLOOD CELL COUNT(AUTO) 3.63 MIL/uL (4.20-5.40); RED CELL DISTRIBUTION WIDTH 15.8 % (11.6-13.7); WHITE BLOOD COUNT (AUTO) 3.2 K/uL (4.8-10.8)
--- NOTE | 2020-05-04 12:34 | NUR ---
Pt returned from ct via [facility]
[2020-05-04 12:35] LABS: APPEARANCE,URINE HAZY (CLEAR); BILIRUBIN,URINE NEGATIVE (NEGATIVE); BLOOD, URINE NEGATIVE (NEGATIVE); COLOR,URINE YELLOW (YELLOW); LEUKOCYTE ESTERASE ,URINE NEGATIVE (NEGATIVE); NITRITE, URINE NEGATIVE (NEGATIVE); PH,URINE 7.5 (5.0-9.0); UGLUCOSE NEGATIVE (NEGATIVE)
[2020-05-04 12:45] LABS: ALBUMIN 3.3 g/dL (3.4-5.0); ANION GAP 14.4 (8-16); ASPARTATE AMINOTRANSFERASE 48 U/L (15-37); CARBON DIOXIDE 24.6 mmol/L (21-32); CHLORIDE 93 mmol/L (98-107); CREATININE 0.8 mg/dL (0.6-1.3); GLUCOSE 144 mg/dL (74-106); LIPASE 96 U/L (73-393); SODIUM SERUM 128 mmol/L (136-145); TOTAL BILIRUBIN 0.5 mg/dL (0.0-1.0); UREA NITROGEN, BLOOD 13 mg/dL (7-18)
--- NOTE | 2020-05-04 12:51 | NUR ---
Resting in bed positioned for comfort, hob elevated. RR even and unlabored. VSS
--- NOTE | 2020-05-04 13:25 | NUR ---
PT RESTING IN BED, NO ACUTE DISTRESS NOTED. BED IN LOW POSITION, SIDE RAILS UP X2 FOR PT SAFTEY.
--- NOTE | 2020-05-04 13:57 | NUR ---
Report called to [facility], ETA 60-90 minutes
[2020-05-04 14:58] VITALS: BP 151/79
--- NOTE | 2020-05-04 14:58 | NUR ---
Patient discharged with v/s stable. Written and verbal after care instructions given and explained. Patient verbalized understanding. Ambulance Transport with to longterm. All questions addressed prior to discharge. Advised to follow up with PMD.
== END 2020-05-04 14:58 ==
LOC: MED 11:45
DX: K59.00 Constipation, unspecified (principal); I11.0 Hypertensive heart disease with heart failure; I50.9 Heart failure, unspecified; K21.9 Gastro-esophageal reflux disease without esophagitis; E11.9 Type 2 diabetes mellitus without complications; Z79.899 Other long term (current) drug therapy; Z88.6 Allergy status to analgesic agent
CPT/HCPCS: 36415; 80053; 81003; 83690; 85025; 99284